=== PATIENT | male | born 1970 | race Caucasian/White ===

== ENCOUNTER 2017-04-01 22:42 | Emergency (ER) | payer OTHER ==
[2017-04-01 23:20] LABS: Glucose,Whole Blood 112 mg/dL (75-99)
[2017-04-01 23:21] LABS: Basophils % (A) 1 %; CHCM 36.1; Eosinophils # (A) 0.1 k/uL (0-0.7); Eosinophils % (A) 2 %; HCT 45.7 % (39.0-53.0); HGB 15.6 gm/dL (13.0-17.5); Luc # (Auto) 0.23; Luc % (Auto) 3; Lymphocytes # (A) 2.4 k/uL (1.0-4.8); Lymphocytes % (A) 31 %; MCH 32.4 pg (25.0-35.0); MCHC 34.1 g/dL (31.0-37.0); MCV 94.8 fL (80.0-100.0); Mean Platelet Volume 7.6; Monocytes # (A) 0.4 k/uL (0-1.0); Monocytes % (A) 6 %; Neutrophils # (A) 4.4 k/uL (1.3-7.7); Neutrophils % (A) 58 %; RBC 4.82 m/uL (4.30-5.90); RDW 14.1 % (11.5-15.5); WBC 7.6 k/uL (3.8-10.6); WBC (Perox) 7.16
[2017-04-01 23:34] LABS: ALT 108 U/L (21-72); AST 54 U/L (17-59); Alkaline Phosphatase 87 U/L (38-126); Anion Gap 18 mmol/L; Blood Urea Nitrogen 10 mg/dL (9-20); Calcium 9.8 mg/dL (8.4-10.2); Carbon Dioxide 24 mmol/L (22-30); Chloride 106 mmol/L (98-107); Glucose 118 mg/dL (74-99); Non-African American GFR(MDRD) >60 (>60 ml/min/1.73 sqM); Potassium 4.6 mmol/L (3.5-5.1); Sodium 148 mmol/L (137-145); Total Bilirubin 0.4 mg/dL (0.2-1.3); Total Protein 8.4 g/dL (6.3-8.2)
--- NOTE | 2017-04-01 23:39 | ED ---
General Adult HPI - General Chief complaint: Fall Stated complaint: low blood sugar resulting in head wound Time Seen by Provider: 04/01/17 22:52 Source: patient, family, RN notes reviewed Mode of arrival: ambulatory Limitations: no limitations - History of Present Illness Initial comments: 46-year-old male presents to the emergency department with chief complaint of fall. Patient states she was at home. He felt kind of shaky like his sugar was dropping and he fell and hit his head on the glass table. Patient states that he then woke up on the ground and he states that he did not check his sugar upper extremity ate something is feeling better. Patient states he did have some beer tonight as well. Patient states that they noticed some cuts on his head so they thought that he should be seen. Patient states that he has had no nausea or vomiting. Patient denies any neck pain. Patient states otherwise he feels great at this time. He has no complaints. Patient denies any recent fever, chills, shortness of breath, chest pain, back pain, abdominal pain, nausea vomiting, numbness or tingling, dysuria or hematuria, constipation or diarrhea, headaches or visual changes, or any other current symptoms. - Related Data Home Medications Medication Instructions Recorded Confirmed Cholecalciferol [Vitamin D3] 1,000 unit PO DAILY 04/01/17 04/01/17 Lisinopril [Prinivil] 15 mg PO DAILY 04/01/17 04/01/17 metFORMIN HCL [Glucophage Xr] 500 mg PO DAILY 04/01/17 04/01/17 Allergies Allergy/AdvReac Type Severity Reaction Status Date / Time No Known Allergies Allergy Verified 04/01/17 23:20 Review of Systems ROS Statement: Those systems with pertinent positive or pertinent negative responses have been documented in the HPI. ROS Other: All systems not noted in ROS Statement are negative. Past Medical History Past Medical History: Diabetes Mellitus, Hypertension History of Any Multi-Drug Resistant Organisms: None Reported Past Surgical History: No Surgical Hx Reported Past Psychological History: No Psychological Hx Reported Smoking Status: Never smoker Past Alcohol Use History: None Reported Past Drug Use History: None Reported General Exam Limitations: no limitations General appearance: alert, in no apparent distress Head exam: Present: other (Patient has multiple lacerations to the back of the head. One is 5 cm and gaping with associated hematoma. There is 3 that are abrasions.) Eye exam: Present: normal appearance, PERRL, EOMI. Absent: scleral icterus, conjunctival injection, periorbital swelling ENT exam: Present: normal exam, mucous membranes moist Neck exam: Present: normal inspection. Absent: tenderness, meningismus, lymphadenopathy Respiratory exam: Present: normal lung sounds bilaterally. Absent: respiratory distress, wheezes, rales, rhonchi, stridor Cardiovascular Exam: Present: regular rate, normal rhythm, normal heart sounds. Absent: systolic murmur, diastolic murmur, rubs, gallop, clicks Neurological exam: Present: alert, oriented X3, CN II-XII intact, normal gait, reflexes normal. Absent: motor sensory deficit Psychiatric exam: Present: normal affect, normal mood Skin exam: Present: warm, dry, intact, normal color. Absent: rash Course Vital Signs 04/01/17 04/01/17 22:44 23:17 Temperature 98.1 F Pulse Rate 110 H 101 H Respiratory 20 17 Rate Blood Pressure 171/112 139/73 O2 Sat by Pulse 97 98 Oximetry Procedures - Procedures Initial comment: The skin was anesthetized with 1% lidocaine without epinephrine. The laceration was then cleansed with Betadine and irrigated with normal saline. The wound was inspected, and there was no evidence of injury to deep structures. No foreign body was noted in the wound. A total of 4 skin fabi were placed with good approximation. to a 5 cm laceration of scalp Medical Decision Making - Medical Decision Making 46-year-old male presents with head injury after suspected that his glucose dropped. There is no chest pain no shortness of breath. He didn't hit his head there is small hematomas and lacerations. Patient's CAT scan is reviewed and negative. Patient underwent staple repair of the head. We did discuss what to watch for with head injuries. Patient's glucose has remained stable here at this time. The patient will be discharged home. We did discuss close monitoring we discussed follow-up and staple care. Patient family are in agreement plan all questions have been good. They will be discharged home. - Lab Data Result diagrams: 04/01/17 23:09 04/01/17 23:09 Lab Results 04/01/17 04/01/17 04/01/17 Range/Units 23:09 23:09 23:15 WBC 7.6 (3.8-10.6) k/uL RBC 4.82 (4.30-5.90) m/uL Hgb 15.6 (13.0-17.5) gm/dL Hct 45.7 (39.0-53.0) % MCV 94.8 (80.0-100.0) fL MCH 32.4 (25.0-35.0) pg MCHC 34.1 (31.0-37.0) g/dL RDW 14.1 (11.5-15.5) % Plt Count 339 (150-450) k/uL Neutrophils % 58 % Lymphocytes % 31 % Monocytes % 6 % Eosinophils % 2 % Basophils % 1 % Neutrophils # 4.4 (1.3-7.7) k/uL Lymphocytes # 2.4 (1.0-4.8) k/uL Monocytes # 0.4 (0-1.0) k/uL Eosinophils # 0.1 (0-0.7) k/uL Basophils # 0.0 (0-0.2) k/uL Sodium 148 H (137-145) mmol/L Potassium 4.6 (3.5-5.1) mmol/L Chloride 106 (98-107) mmol/L Carbon Dioxide 24 (22-30) mmol/L Anion Gap 18 mmol/L BUN 10 (9-20) mg/dL Creatinine 1.00 (0.66-1.25) mg/dL Est GFR (MDRD) Af Amer >60 (>60 ml/min/1.73 sqM) Est GFR (MDRD) Non-Af >60 (>60 ml/min/1.73 sqM) Glucose 118 H (74-99) mg/dL POC Glucose (mg/dL) 112 H (75-99) mg/dL POC Glu Learning Services Coordinator ID Mary Miranda Calcium 9.8 (8.4-10.2) mg/dL Total Bilirubin 0.4 (0.2-1.3) mg/dL AST 54 (17-59) U/L ALT 108 H (21-72) U/L Alkaline Phosphatase 87 (38-126) U/L Total Protein 8.4 H (6.3-8.2) g/dL Albumin 5.0 (3.5-5.0) g/dL Disposition Clinical Impression: Fall, Hypoglycemia, Laceration of head, Scalp hematoma Disposition: HOME SELF-CARE Condition: Stable Instructions: Hypoglycemia in a Person with Diabetes (ED), Head Injury (ED), Staple Care (ED) Additional Instructions: Please use medication as discussed. Please follow up with family doctor if symptoms have not improved over the next two days. Please return to the emergency room if your symptoms increase or worsen or for any other concerns. Referrals: Ruperto Calzada MD [Primary Care Provider] - 1-2 days Time of Disposition: 00:40
--- NOTE | 2017-04-02 00:33 | CT ---
EXAM: CT Head Without Intravenous Contrast CLINICAL HISTORY: Reason: Pain TECHNIQUE: Axial computed tomography images of the head/brain without intravenous contrast. CTDI is 57.40 mGy and DLP is 1098.80 mGy-cm. This CT exam was performed using one or more of the following dose reduction techniques: automated exposure control, adjustment of the mA and/or kV according to patient size, and/or use of iterative reconstruction technique. COMPARISON: No relevant prior studies available. FINDINGS: Brain: Unremarkable. No hemorrhage. No significant white matter disease. No edema. Ventricles: Unremarkable. No ventriculomegaly. Bones/joints: Unremarkable. No acute fracture. Soft tissues: Unremarkable. Sinuses: Unremarkable as visualized. No acute sinusitis. Mastoid air cells: Unremarkable as visualized. No mastoid effusion. Other findings: Right parietal subgaleal hematoma. IMPRESSION: No acute intracranial process. Right parietal subgaleal hematoma. EXAM: CT Cervical Spine Without Intravenous Contrast CLINICAL HISTORY: Reason: Pain TECHNIQUE: Axial computed tomography images of the cervical spine without intravenous contrast. CTDI is 26.40 mGy and DLP is 616.50 mGy-cm. This CT exam was performed using one or more of the following dose reduction techniques: automated exposure control, adjustment of the mA and/or kV according to patient size, and/or use of iterative reconstruction technique. COMPARISON: No relevant prior studies available. FINDINGS: Vertebrae: Unremarkable. No acute fracture. Discs/spinal canal/neural foramina: No acute findings. No spinal canal stenosis. Soft tissues: Unremarkable. Lung apices: Unremarkable as visualized. IMPRESSION: Normal cervical spine CT.
[2017-04-02 00:55] VITALS: BP 138/70; PULSE 100; RESP 16; TEMP 98
== END 2017-04-02 00:56 | disposition home or self-care (01) ==
LOC: EC 22:42
DX: S01.01XA Laceration without foreign body of scalp, initial encounter (principal); E11.649 Type 2 diabetes mellitus with hypoglycemia without coma; M54.2 Cervicalgia; I10 Essential (primary) hypertension; Z79.84 Long term (current) use of oral hypoglycemic drugs; Z79.899 Other long term (current) drug therapy; W01.190A Fall on same level from slipping, tripping and stumbling with subsequent striking against furniture, initial encounter; Y92.009 Unspecified place in unspecified non-institutional (private) residence as the place of occurrence of the external cause
CPT/HCPCS: 12002; 36415; 70450; 72125; 80053; 85025; 99283

== ENCOUNTER 2021-07-29 17:57 | Emergency (ER) | payer OTHER ==
[2021-07-29 18:12] VITALS: RESP 18; TEMP 97.6
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
[2021-07-30 08:04] VITALS: BP 157/84; PULSE 116
== END 2021-07-30 03:15 | disposition home or self-care (01) ==
LOC: EC 17:57
DX: S09.90XA Unspecified injury of head, initial encounter (principal); F10.129 Alcohol abuse with intoxication, unspecified; E11.9 Type 2 diabetes mellitus without complications; I10 Essential (primary) hypertension; Z79.84 Long term (current) use of oral hypoglycemic drugs; W01.10XA Fall on same level from slipping, tripping and stumbling with subsequent striking against unspecified object, initial encounter; Y90.9 Presence of alcohol in blood, level not specified
CPT/HCPCS: 70450; 72125; 99284

== ENCOUNTER → 2022-08-03 | Outpatient (CLI) | payer OTHER ==
[2022-08-03 08:41] LABS: INR 0.9 (<1.2); Prothrombin Time 9.6 sec (9.0-12.0)
[2022-08-03 11:27] LABS: HCT 39.3 % (39.6-50.0); HGB 14.3 g/dL (13.0-17.0); MCH 32.8 pg (27.0-32.0); MCHC 36.4 g/dL (32.0-37.0); MCV 90.1 fL (80.0-97.0); Mean Platelet Volume 10.5 fL (9.5-12.2); NRBC Per 100 WBC 0 /100 WBCS (0.0-0.0); Platelet Count 300 X 10*3/uL (140-440); RBC 4.36 X 10*6/uL (4.40-5.60); RDW 12.9 % (11.5-14.5); WBC 5.35 X 10*3/uL (4.50-10.00)
[2022-08-03 11:34] LABS: African American GFR (CKD) 102.7 (60.0-200.0); Albumin 4.5 g/dL (3.8-4.9); Albumin/Globulin Ratio 1.52 (1.60-3.17); Anion Gap 11.6 mmol/L (10.00-18.00); BUN/Creat Ratio 15.39 Ratio (12.00-20.00); Blood Urea Nitrogen 15.3 mg/dL (9.0-27.0); Calcium 9.5 mg/dL (8.7-10.3); Carbon Dioxide 25.4 mmol/L (20.0-27.5); Globulin 2.9 g/dL (1.6-3.3); Non-African American GFR(CKD) 88.6 (60.0-200.0); Potassium 4.2 mmol/L (3.5-5.5); Total Bilirubin 0.4 mg/dL (0.30-1.20); Total Protein 7.4 g/dL (6.2-8.2)
[2022-08-03 11:38] LABS: Appearance,Urine Clear (Clear); Bilirubin,Urine Negative (Negative); Blood,Urine Negative (Negative); Color,Urine Yellow (Yellow); Ketones,Urine Negative (Negative); Nitrite,Urine Negative (Negative); Specific Gravity,Urine 1.022 (1.001-1.030); Urobilinogen,Urine 0.2 (0.2,1.0)
== END | disposition home or self-care (01) ==
LOC: LABPAT 07:31
PROVIDERS: ATTEND Orthopaedic Surgery
DX: Z01.812 Encounter for preprocedural laboratory examination (principal); M16.11 Unilateral primary osteoarthritis, right hip; M87.08 Idiopathic aseptic necrosis of bone, other site
CPT/HCPCS: 80053; 81003; 85027; 85610; 85730; 87070

== ENCOUNTER → 2022-08-08 | Outpatient (CLI) | payer OTHER | END | disposition home or self-care (01) | LOC: LABWHC1 10:14 | PROVIDERS: ATTEND Orthopaedic Surgery | DX: Z53.9 Procedure and treatment not carried out, unspecified reason (principal) | CPT/HCPCS: 36415; 83036 ==

== ENCOUNTER 2022-08-11 05:37 | Day surgery (SDC) | payer BC, OTHER ==
[~2022-08-11 05:37] MED LIST: MIDAZOLAM 2 MG/2 ML VIAL IV PRN; ROPIVACAINE/EPI/CLONIDINE/KET 50 ML SYRINGE MISCELLANE PRN; TRANEXAMIC ACID IN NACL,ISO-OS 1,000 MG in SALINE 1 100ML.BAG IVPB PRN; VANCOMYCIN 1,750 MG in SODIUM CHLORIDE 0.9% 500 ML 500 ML IVPB PRN
[2022-08-11] MEDS ORDERED: ONDANSETRON 4 MG/2 ML VIAL IVP PRN ×2 (06:00→11:03)
[2022-08-11] MEDS ORDERED: oxyCODONE ER 10 MG TAB.ER.12H PO PRN (06:00)
[2022-08-11] MEDS ORDERED: KETOROLAC 15 MG/ML 1 ML VIAL IVP PRN (06:00)
[2022-08-11] MEDS ORDERED: DOCUSATE 100 MG CAP PO PRN (06:00)
[2022-08-11] MEDS ORDERED: ACETAMINOPHEN TAB 500 MG TAB PO PRN (06:00)
[2022-08-11] MEDS ORDERED: FAMOTIDINE 20 MG/2 ML VIAL IVP PRN (06:00)
[2022-08-11] MEDS ORDERED: DEXAMETHASONE SOD PHOSPHATE 10 MG/ML 1 ML VIAL IV PRN (06:00)
[2022-08-11] MEDS ORDERED: LACTATED RINGERS 1,000 ML IV ONE ×3 (06:20→10:42)
[2022-08-11 06:42] LABS: Glucose,Whole Blood 168 mg/dL (70-110)
[2022-08-11] MEDS ORDERED: VANCOMYCIN 1,000 MG VIAL IVPB ONE (07:17)
[2022-08-11] MEDS ORDERED: MIDAZOLAM 2 MG/2 ML VIAL IVP ONE (07:29)
[2022-08-11] MEDS ORDERED: KETAMINE 10 MG/ML 20 ML VIAL ONE (07:35)
[2022-08-11] MEDS ORDERED: HYDROmorphone (PF) 1 MG/ML ONE (07:35)
[2022-08-11] MEDS ORDERED: PROPOFOL 10 MG/ML 20 ML VIAL IV ONE (07:35)
[2022-08-11] MEDS ORDERED: NEOSTIGMINE 1 MG/ML 10 ML VIAL ONE (07:35)
[2022-08-11] MEDS ORDERED: ROCURONIUM 10 MG/ML (5 ML VIAL) IV ONE (07:35)
[2022-08-11] MEDS ORDERED: PHENYLEPHRINE-0.9% NACL SYG 1,000 MCG/10 ML SYRINGE ONE (07:35)
[2022-08-11] MEDS ORDERED: TRANEXAMIC ACID IN NACL,ISO-OS 1,000 MG/100 ML BAG ONE (07:35)
[2022-08-11] MEDS ORDERED: SODIUM CHLORIDE 0.9% (PF) 10 ML VIAL ONE (07:35)
[2022-08-11] MEDS ORDERED: GLYCOPYRROLATE 0.2 MG/ML 2 ML VIAL ONE (07:35)
[2022-08-11] MEDS ORDERED: fentaNYL (PF) 50 MCG/ML 2 ML AMP ONE (07:35)
[2022-08-11] MEDS ORDERED: MIDAZOLAM 2 MG/2 ML VIAL ONE (07:35)
[2022-08-11] MEDS ORDERED: ROPIVACAINE 5 MG/ML 30 ML VIAL ONE (07:35)
[2022-08-11] MEDS ORDERED: DEXAMETHASONE SOD PHOSPHATE 4 MG/ML 1 ML VIAL ONE (07:35)
[2022-08-11] MEDS ORDERED: LIDOCAINE 2% INJ 20 MG/ML (2 ML VIAL) ONE (07:35)
[2022-08-11] MEDS ORDERED: SUCCINYLCHOLINE CHLORIDE 200 MG/10 ML VIAL IV ONE (07:35)
--- NOTE | 2022-08-11 09:07 | P.ANPRN ---
Procedure Note - Anesthesia - Nerve Block Performed Right Aung Time Out Performed: Yes (:) Date of Procedure: 08/11/22 Procedure Start Time: Procedure Stop Time: Location of Patient: PreOp Indication: Acute Post-Operative Pain, Requested by Surgeon (Dr Hernandez) Sedation Type: Sedate with meaningful contact maintained Preparation: Sterile Prep Position: Supine Catheter: None Needle Types: Pajunk Needle Gauge: 21 Ultrasound used to visualize needle placement: Yes Ultrasound used to observe medication spread: Yes Injectate: 0.5% Ropivacaine (see comment for volume) (20cc +5cc PF Normal saline. Decadron 4mg) Blood Aspirated: No Pain Paresthesia on Injection Noted: No Resistance on Injection: Normal Image Stored and Saved: Yes Events: Uneventful and Well Tolerated
[2022-08-11] MEDS ORDERED: ceFAZolin 3,000 MG in SODIUM CHLORIDE 0.9% IRRIGATIO 3,000 ML IRRIGATION ONE (10:15)
[2022-08-11] MEDS ORDERED: NALOXONE 0.4 MG/ML 1 ML VIAL IV PRN (11:03)
[2022-08-11] MEDS ORDERED: HYDROmorphone 0.5 MG/0.5 ML SYRINGE IVP PRN ×2 (11:03)
[2022-08-11] MEDS ORDERED: hydrOXYzine pamoate 25 MG CAP PO PRN (11:03)
--- NOTE | 2022-08-11 11:12 | P.OP ---
Date of Procedure: 08/11/22 Preoperative Diagnosis: Right hip avascular necrosis, pre-collapse Postoperative Diagnosis: Same Procedure(s) Performed: Right direct anterior total hip arthroplasty Implants: 1. Briana Trident II Acetabular Cup, Size #56 2. Briana Insignia Size #6 Femoral Stem, Standard Offset 3. Biolox delta femoral head, 36 mm, -0 neck Anesthesia: GETA, regional Surgeon: Cruz Hernandez Sign Maintenance #1: Олег Garcia Estimated Blood Loss (ml): 300 IV fluids (ml): 1,200 Pathology: other (Femoral head sent to pathology due to avascular necrosis) Condition: stable Disposition: PACU Indications for Procedure: The patient is a very pleasant 51-year-old male who presented to my office with incapacitating right hip pain. On exam his hip was extremely irritable and he had exquisite pain with passive range of motion. His x-rays were relatively normal so an MRI was obtained. On review of the MRI he had a large area of avascular necrosis. We discussed different treatment options including nonsurgical treatment, joint sparing treatment for avascular necrosis, and total joint replacement. Due to the extent of his avascular necrosis, pain, and age we both agreed that a total hip replacement would be the most predictable for his pain and diagnosis of avascular necrosis. We discussed the potential risks that are elevated and total hip replacement for avascular necrosis including an elevated risk of dislocation. The patient also understands the potential for to need pain if his pain is referred from outside of his hip. He also understands that he may have issues with his left hip as his MRI also showed avascular necrosis in the left hip. I had a long discussion with the patient in the office on the potential risks and complications of an elective total hip replacement through a direct anterior approach. Risks discussed include, but are certainly not limited to, risks from anesthesia, superficial infection requiring local wound care or antibiotics, deep celso-prosthetic joint infection and the treatment required to eradicate infection, intraoperative fracture, postoperative periprosthetic fracture, damage to local blood vessels or nerves particularly the lateral femoral cutaneous nerve, delayed wound healing requiring local wound care or possibly surgical debridement, hip dislocation, leg length discrepancy, soft tissue irritation around the total hip implant such as iliopsoas tendinitis or trochanteric bursitis, wear and osteolysis from the implants, squeaking or audible noises, groin pain, thigh pain, heterotopic ossification, stiffness, aseptic loosening of the implants, dissatisfaction with surgical outcome, need for revision surgery, DVT, PE, swelling of the operative extremity, acute coronary event, stroke, failure to thrive, and possibly loss of life or limb. The patient understands that while these are the most common complications after an elective hip replacement there are certainly other less common complications possible. They were given ample time to ask questions regarding the potential complications of a hip replacement. Following our discussion the patient provided their verbal and written consent to go forward with an elective total hip replacement. Operative Findings: On inspection of the hip capsule was thickened and hypertrophic. The synovium was inflamed and there was a large tense clear effusion in the right hip. The femoral head was intact without any areas of collapse but there was softening in the superior aspect of the articulating surface of the femoral head. Description of Procedure: The patient was identified in the preoperative holding area and the correct hip was marked with my initials. I reviewed the procedure and consent with the patient. All of their questions were answered. The patient was then brought back into the operating room by anesthesia. While on the [facility] anesthesia was administered by the anesthesia team. Preoperative antibiotics and tranexamic acid were also given. After the patient was under anesthesia I examined their ankles to determine their preoperative leg length discrepancy. The skin over the anterior aspect of the hip was shaved to remove hair over the site of planned incision. Both feet and ankles were padded with webril and boots for the [place] were applied. The patient was then carefully transferred onto the [place] table. A perineal post was immediately placed. The arms were placed on arm holders and were well-padded. Both boots were secured to the spars on the [place] table. The patient was positioned so that the pelvis was centered over the post. Nonsterile drapes were applied. A timeout was performed identifying the correct patient, operative extremity, and procedure. At this point fluoroscopy was brought in to take preoperative images of the pelvis and operative hip. Using the standing AP pelvis from the office as a template, a comparable image was obtained with fluoroscopy. A metallic bar was used to create a bi-ischial line for use as a reference to leg length adjustments during the procedure. Global offset was also measured on both the operative and nonoperative leg. Fluoroscopy was then brought out and a pre-scrub using a chlorhexidine scrub brush was performed. The operative limb was then prepped and draped in the standard sterile fashion. An anterior longitudinal incision was made lateral and distal to the ASIS. The skin and subcutaneous tissues were incised sharply. The underlying tensor fascia was identified and incised in its midportion. The fascia was dissected free from the underlying muscle and the muscle belly was retracted. A blunt tipped cobra retractor was placed over the superior neck under the muscle fibers of the gluteus minimus. The deep enveloping fascia of the tensor was incised. The anterior leash of vessels were then identified and cauterized. The fascia between the rectus and the capsule was then incised and the pre-capsular fat was excised. A second Cobra was placed inferior to the neck. The interval between the rectus and iliocapsularis and the hip capsule was developed and a retractor was placed carefully over the anterior rim of the acetabulum. A T-shaped anterior capsulotomy was performed. There was a tense effusion and immediately upon performing the capsulotomy there was a large eisenberg of clear synovial fluid. On inspection of the capsule it appeared hypertrophic and edematous. The superior capsular leaflet was left in place in the inferior capsular flap was excised. The Cobra retractors were placed intracapsularly. We then made a femoral neck osteotomy according to preoperative and intraoperative templating and confirmed the level of the osteotomy using fluoroscopic imaging. The femoral head was removed, passed off to the back table, and sized. The superior capsular flap was excised. Retractors were placed circumferentially exposing the acetabulum. We then circumferentially debrided the acetabulum free of labrum and osteophytes. The pulvinar was removed to fully visualize the cotyloid fossa. We then sequentially reamed to achieve peripheral fit and excellent bleeding subchondral bone. The socket was thoroughly irrigated. The acetabular component was impacted into the appropriate position using fluoroscopy to guide version, inclination, and depth of insertion taking care to have a comparable image of the AP pelvis to the standing image taken in the office. An excellent press-fit was achieved and final position was confirmed using fluoroscopy. The press fit was augmented with bony cancellus dome screws. The liner was then impacted into the socket. Attention was then turned to the femur. The remnant dorsal lateral capsule was excised. The short external rotators were visible and protected. A bone hook was used to confirm appropriate translation of the trochanter away from the acetabulum. The leg was then extended and adducted and the bone hook was used to elevate the femur for broaching. A box osteotome and blunt tipped canal sound was then utilized to gain access to the femoral canal. We then sequentially broached the femur in appropriate anteversion until excellent tors ional stability was achieved. The neck cut was brought flush to the trial broach with a calcar planar. A trial neck and head were then placed onto the broach and the hip was atraumatically reduced under direct visualization. External rotation to 90 was performed to assess stability. Fluoroscopy was brought in. An AP and lateral fluoroscopic image of the proximal femur was obtained to assess position and fill of the trial broach. An AP of the pelvis was then obtained and matched to the preoperative image taken. A bi-ischial bar was then placed and measurements were taken to assess changes in length and offset. The hip was then carefully dislocated, the proximal femur was exposed, and the trial implants were removed. The wound and proximal femur was thoroughly irrigated using sterile saline and pulsatile lavage. The final femoral implant was dispensed and gently tapped into place generating an excellent press-fit. The trunnion was cleansed and the final head was tapped into place to engage the [place] taper. The acetabulum was irrigated and visualized to be free of debris. The hip was carefully reduced. Stability was checked clinically with external rotation to 90 and there was no evidence of instability. Final fluoroscopic images were taken. The wound was then thoroughly irrigated and soaked with a dilute Betadine rinse for 3 minutes. 3 L of sterile saline was irrigated through the wound using pulsatile lavage. Local anesthetic cocktail was injected into the soft tissues around the surgical field. A deep drain was placed. The wound was then closed in layers. A sterile dressing was placed over the surgical incision and drain site. The drapes were taken down and the patient was carefully transferred off of the [place] table. Following removal of the boots the leg lengths felt acceptable. The patient was then taken to recovery room having tolerated the procedure well. Олег Garcia PA-C was required as a skilled psychological assistant for patient positioning, surgical exposure, retraction, placement of implants, and closure of the surgical wound. PLAN: The patient can weight-bear as tolerated on the operative extremity. 2 doses of postoperative antibiotics. DVT prophylaxis with aspirin 81 mg twice a day based on preoperative risk stratification. Physical therapy for gait training. Discontinue drain postoperative day #1 if output is less than 100 mL per shift.
[2022-08-11 11:18] LABS: Glucose,Whole Blood 279 mg/dL (70-110)
[2022-08-11] MEDS: HYDROmorphone 0.5 MG/0.5 ML SYRINGE IVP PRN ×2 (11:24→11:44)
--- NOTE | 2022-08-11 11:30 | FL ---
EXAMINATION TYPE: FL guidance operating room, XR Hip Limited RT DATE OF EXAM: 08/11/2022 COMPARISON: NONE HISTORY: 51-year-old male right anterior hip replacement FINDINGS: Intraoperative fluoroscopy during performance of right total hip arthroplasty. FLUOROSCOPY Fluoroscopy time of 46 seconds was used during anterior right hip replacement. 8 image/s document/s the procedure. IMPRESSION: Intraoperative fluoroscopy as above.
[2022-08-11] MEDS ORDERED: diphenhydrAMINE 50 MG/ML 1 ML VIAL IVP ONE (11:44)
[2022-08-11] MEDS ORDERED: INSULIN ASPART (NovoLOG) 100 UNIT/ML VIAL SQ ONE (11:52)
[2022-08-11] MEDS: LACTATED RINGERS 1,000 ML IV SCH ×2 (13:09→13:14)
[2022-08-11] MEDS: oxyCODONE-APAP 5-325MG 1 EACH TAB PO PRN (15:15)
[2022-08-11] MEDS: HYDROmorphone 1 MG/ML 1 ML SYRINGE IVP PRN ×2 (19:57→23:41)
[2022-08-11] MEDS: ASPIRIN 81 MG PO SCH (21:15)
[2022-08-12] MEDS: LACTATED RINGERS 1,000 ML IV SCH ×6 (01:13→20:31)
[2022-08-12] MEDS: oxyCODONE-APAP 5-325MG 1 EACH TAB PO PRN (03:29)
[2022-08-12] MEDS: HYDROmorphone 1 MG/ML 1 ML SYRINGE IVP PRN (07:50)
[2022-08-12] MEDS: ASPIRIN 81 MG PO SCH ×2 (07:53→20:30)
[2022-08-12] MEDS: oxyCODONE-APAP 10-325MG 1 EACH TAB PO PRN ×3 (09:44→21:38)
--- NOTE | 2022-08-12 10:00 | P.DS ---
Providers Expected date of discharge: 08/12/22 Attending physician: Cruz Hernandez Consults: 08/11/22 13:39 Consult Physician Routine Consulting Provider: Micaela Peres Consult Reason/Comments: medical management Do you want consulting provider notified?: Yes Primary care physician: Ruperto Ding Kut - Discharge Diagnosis(es) (1) S/P total hip arthroplasty Current Visit: Yes Status: Acute (2) Osteoarthritis of right hip Current Visit: Yes Status: Acute Hospital Course: This is a 51-year-old male with known history of avascular necrosis of the right hip. The patient presented for evaluation as an outpatient. After discussion and consideration patient elects to proceed with total hip arthroplasty. The patient is seen preoperatively by Dr. Hernandez and medically cleared for surgery by their primary care physician. Patient is admitted to [facility] on 08/11/2022 for total hip arthroplasty. The procedure is performed without complication or sequelae. The patient is doing well postoperatively. Labs and vital signs are stable on day o f discharge. On day of discharge patient's hip incision is healing well. There is minimal erythema. There is no drainage noted at this time. There is minimal soft tissue swelling to the hip and thigh. Patient has full foot and ankle motion without difficulty or pain. Calf is soft and nontender to palpation. Neurovascular status to the right lower extremity is intact. Patient is discharged home in good condition. Please see med rec for accurate list of home medications. Plan - Discharge Summary Discharge Rx Participant: No New Discharge Prescriptions: New Docusate [Colace] 100 mg PO BID #60 capsule Omeprazole 40 mg PO DAILY 30 Days #30 cap Aspirin 81 mg PO BID 30 Days #60 tab Diclofenac Sodium [Voltaren] 75 mg PO BID 30 Days #60 tab Doxycycline Monohydrate 100 mg PO BID 14 Days #28 capsule oxyCODONE-APAP 10-325MG [Percocet 10-325 mg] 1 tab PO Q6HR PRN #28 tab PRN Reason: Pain No Action Cholecalciferol [Vitamin D3] 1,000 unit PO DAILY Metoprolol Succinate [Metoprolol Succinate ER] 50 mg PO DAILY Niacin 500 mg PO DAILY [place] 1 tab PO DAILY Bitter Melon 1 tab PO DAILY Triamterene-Hctz 37.5-25Mg [Dyazide 37.5-25 Capsule] 1 cap PO DAILY Fish Oil/Dha/Epa [Fish Oil 1,200 mg Fish Oil] 1 each PO DAILY Cider Vinegar [Apple Cider Vinegar] 300 mg PO DAILY Discharge Medication List Cholecalciferol [Vitamin D3] 1,000 unit PO DAILY 04/01/17 [History] Bitter [place]on 1 tab PO DAILY 08/03/22 [History] Cider Vinegar [Apple Cider Vinegar] 300 mg PO DAILY 08/03/22 [History] Fish Oil/Dha/Epa [Fish Oil 1,200 mg Fish Oil] 1 each PO DAILY 08/03/22 [History] Metoprolol Succinate [Metoprolol Succinate ER] 50 mg PO DAILY 08/03/22 [History] [place] 1 tab PO DAILY 08/03/22 [History] Niacin 500 mg PO DAILY 08/03/22 [History] Triamterene-Hctz 37.5-25Mg [Dyazide 37.5-25 Capsule] 1 cap PO DAILY 08/03/22 [History] Aspirin 81 mg PO BID 30 Days #60 tab 08/11/22 [Rx] Diclofenac Sodium [Voltaren] 75 mg PO BID 30 Days #60 tab 08/11/22 [Rx] Docusate [Colace] 100 mg PO BID #60 capsule 08/11/22 [Rx] Omeprazole 40 mg PO DAILY 30 Days #30 cap 08/11/22 [Rx] Doxycycline Monohydrate 100 mg PO BID 14 Days #28 capsule 08/12/22 [Rx] oxyCODONE-APAP 10-325MG [Percocet 10-325 mg] 1 tab PO Q6HR PRN #28 tab 08/12/22 [Rx] Follow up Appointment(s)/Referral(s): [facility], [NON-STAFF] - As Needed [facility] [NON-STAFF] - As Needed (walker) Cruz Hernandez MD [Medical Doctor] - 2 Weeks Activity/Diet/Wound Care/Special Instructions: Weight bear to tolerance on operative extremity with a walker. Keep operative dressing in place until follow-up appointment in the office. Call the office if dressing becomes saturated or falls off. May shower over dressing. Take pain medication as prescribed. Take aspirin 81mg BID x 4 weeks for blood clot prevention. Follow-up in the office in two weeks at [facility]. Call the office with any questions or concerns, Discharge Disposition: HOME WITH HOME HEALTH SERVICES
[2022-08-12 13:30] LABS: Basophils # (A) 0.01 X 10*3/uL (0.00-0.10); Basophils % (A) 0.1 %; Eosinophils # (A) 0.01 X 10*3/uL (0.04-0.35); Eosinophils % (A) 0.1 %; HCT 27.4 % (39.6-50.0); HGB 10.2 g/dL (13.0-17.0); Immature Grans, Automated 0.6 %; Lymphocytes # (A) 1.56 X 10*3/uL (0.90-5.00); Lymphocytes % (A) 12.3 %; MCH 33.6 pg (27.0-32.0); MCHC 37.2 g/dL (32.0-37.0); MCV 90.1 fL (80.0-97.0); Monocytes # (A) 1.18 X 10*3/uL (0.20-1.00); Monocytes % (A) 9.3 %; NRBC Per 100 WBC 0 /100 WBCS (0.0-0.0); Neutrophils # (A) 9.84 X 10*3/uL (1.80-7.70); Neutrophils % (A) 77.6 %; Platelet Count 256 X 10*3/uL (140-440); RBC 3.04 X 10*6/uL (4.40-5.60); RDW 13.9 % (11.5-14.5); WBC 12.67 X 10*3/uL (4.50-10.00)
[2022-08-12] MEDS: KETOROLAC 15 MG/ML 1 ML VIAL IVP PRN ×2 (13:49→18:52)
[2022-08-12] MEDS: CYCLOBENZAPRINE 5 MG TAB PO PRN ×2 (13:49→21:38)
--- NOTE | 2022-08-12 15:15 | P.CONS ---
History of Present Illness - Reason for Consult Consult date: 08/12/22 Medical management status post right hip replacement - History of Present Illness This is a 51-year-old male who was admitted under orthopedic services underwent right total hip arthroplasty and is doing relatively well. Working on pain management. Patient follows with Dr. Calzada in the outpatient setting and underwent presurgical clearance with him and has a past medical history of diabetes mellitus, diet controlled along with hypertension. Patient's hemoglobin A1c is 7.8 and reports he is diet controlled and does not take medications for this. Patient pressure is normotensive at this time recommend to hold the pressure medications and monitor and resume his blood pressure becomes elevated. Patient reports to having some spasms in the right lower extremity and will add low-dose Flexeril. Patient encouraged to follow-up with primary care provider to discuss diabetes and possible initiation of oral diabet ic agents. On exam patient is afebrile denies chest pain or shortness of breath. Incentive spirometer at the bedside and encourage the patient continue using at least 10 times every hour while awake. Patient reports he may be discharged later today and has been cleared by orthopedics. CBC reviewed today with a WBC of 12.67 most likely reactive and blood sugars are being monitored. Hemoglobin is stable at 10.2. Vital signs are stable and blood pressure is currently 102/64. Review Of Systems: Constitutional: No fever, no chills, no night sweats. No weight change. No weakness, fatigue or lethargy. No daytime sleepiness. EENT: No headache. No blurred vision or double vision, no loss of vision. No loss of Hearing, no ringing in the ears, no dizziness. No nasal drainage or congestion. No epistaxis. No sore throat. Lungs: No shortness of breath, cough, no sputum production. No wheezing. Cardiovascular: No chest pain, no lower extremity edema. No palpitations. No paroxysmal nocturnal dyspnea. No orthopnea. No lightheadedness or dizziness. No syncopal episodes. Abdominal: No abdominal pain. No nausea, vomiting. No diarrhea. No constipation. No bloody or tarry stools.. No loss of appetite. Genitourinary: No dysuria, increased frequency, urgency. No urinary retention. Musculoskeletal: No myalgias. No muscle weakness, no gait dysfunction, no frequent falls. No back pain. No neck pain. Reports some right hip discomfort and cramping and spasms of the right lower extremity Integumentary: No wounds, no lesions. No rash or pruritus. No unusual bruising. No change in hair or nails. Neurologic: No aphasia. No facial droop. No change in mentation. No head injury. No headache. No paralysis. No paresthesia. Psychiatric: No depression. No anxiety. No mood swings. Endocrine: Reports abnormal blood sugars while being here although reports to being diet controlled outpatient. No weight change. No excessive sweating or thirst. No cold intolerance. PHYSICAL EXAMINATION: GENERAL: The patient is alert and oriented x4, Well developed, well nourished. Obese HEENT: Pupils are round and equally reacting to light. EOMI. no scleral icterus. No conjunctival pallor. Normocephalic, atraumatic. No pharyngeal erythema. No thyromegaly. CARDIOVASCULAR: S1 and S2 muffled PULMONARY: diminished breath sounds bilaterally with no wheezing or rhonchi note d. ABDOMEN: soft. Nontender on exam. obese. non-distended, normoactive bowel sounds. No palpable organomegaly. MUSCULOSKELETAL: No joint swelling or deformity. EXTREMITIES: No cyanosis, clubbing, or pedal edema. Right hip surgical site looks dry and intact with no surrounding redness. Right lower extremity with some mild edema NEUROLOGICAL: Gross neurological examination did not reveal any focal deficits. SKIN: No rashes. Assessment: Status post right total hip arthroplasty postop day 1 History of diabetes mellitus, diet controlled, although hemoglobin A1c is 7.8 Hypertension history Obesity with a BMI of 39.8 Leukocytosis, most likely reactive secondary to assessment #1 GI prophylaxis DVT prophylaxis Full code Plan: Recommend to continue with current medications and management per orthopedic services. Patient has been up and walking and doing relatively well working on pain management. Will defer pain management and DVT prophylaxis to orthopedics. Patient's home medications have been reviewed and resumed recommend to hold blood pressure medication today as patient is normotensive and encourage the patient to follow-up and monitor blood pressures closely and if blood pressure is elevated at home to resume his normal dosing. Will resume metoprolol. Patient encouraged to discuss with primary care provider's hemoglobin A1c is 7.8 and patient reports he is diet controlled diabetes and not taking any medications for this. Patient with an incentive spirometer at the bedside encourage the patient to continue using at least 10 times every hour while awake. Encouraged increase activity as tolerated with restrictions per orthopedics. Patient has a walker and reports he will possibly be discharged this afternoon if pain is better controlled. Will add low-dose Flexeril as patient is having some spasms of that right thigh and lower extremity. Encourage the patient follow-up with Dr. Calzada his primary care provider discuss his hemoglobin A1c and possible diabetic agents. We will continue to follow with orthopedics during hospitalization. Thank you kindly for this consultation. The impression and plan of care has been dictated by Latonya Plascencia, nurse practitioner as directed. Dr. Khadar RIVERS I have performed a history and examination and MDM of this patient, discussed the same with the dictator, and agree with the dictator's assessment and plan as written ,documented as a scribe. Based on total visit time, I have performed more than 50% of the visit. Any additional findings or plans will be noted. Past Medical History Past Medical History: Diabetes Mellitus, Hypertension Additional Past Medical History / Comment(s): used to take oral med, now diet controlled diabetes History of Any Multi-Drug Resistant Organisms: None Reported Past Surgical History: No Surgical Hx Reported Additional Past Surgical History / Comment(s): wisdom teeth & top teeth removed Past Anesthesia/Blood Transfusion Reactions: No Reported Reaction Past Psychological History: No Psychological Hx Reported Smoking Status: Never smoker Past Alcohol Use History: None Reported Additional Past Alcohol Use History / Comment(s): quit drinking 2 yrs. ago, denies any problem, quit related to his diabetes Past Drug Use History: None Reported - Past Family History Mother Family Medical History: No Reported History Medications and Allergies Home Medications Medication Instructions Recorded Confirmed Type Cholecalciferol [Vitamin D3 (25 1,000 unit PO DAILY 04/01/17 08/11/22 History Mcg = 1000 Iu)] Bitter Melon 1 tab PO DAILY 08/03/22 08/11/22 History Cider Vinegar [Apple Cider Vinegar] 300 mg PO DAILY 08/03/22 08/11/22 History Fish Oil/Dha/Epa [Fish Oil 1,200 1 each PO DAILY 08/03/22 08/11/22 History mg Fish Oil] Metoprolol Succinate [Metoprolol 50 mg PO DAILY 08/03/22 08/11/22 History Succinate ER] [place] 1 tab PO DAILY 08/03/22 08/11/22 History Niacin 500 mg PO DAILY 08/03/22 08/11/22 History Triamterene-Hctz 37.5-25Mg 1 cap PO DAILY 08/03/22 08/11/22 History [Dyazide 37.5-25 Capsule] Aspirin 81 mg PO BID 30 Days #60 tab 08/11/22 Rx Diclofenac Sodium [Voltaren] 75 mg PO BID 30 Days #60 tab 08/11/22 Rx Docusate [Colace] 100 mg PO BID #60 capsule 08/11/22 Rx Omeprazole 40 mg PO DAILY 30 Days #30 cap 08/11/22 Rx Cyclobenzaprine [Flexeril] 5 mg PO TID PRN #30 tab 08/12/22 Rx Doxycycline Monohydrate 100 mg PO BID 14 Days #28 capsule 08/12/22 Rx oxyCODONE-APAP 10-325MG [Percocet 1 tab PO Q6HR PRN #28 tab 08/12/22 Rx 10-325 mg] Allergies Allergy/AdvReac Type Severity Reaction Status Date / Time No Known Allergies Allergy Verified 08/11/22 06:20 Physical Exam Vitals: Vital Signs Temp Pulse Resp BP Pulse Ox 08/12/22 07:24 98.1 F 85 16 118/69 98 08/12/22 02:00 98.8 F 86 16 110/65 96 08/11/22 19:57 98.3 F 95 16 157/80 95 08/11/22 13:00 98.6 F 87 18 114/71 95 08/11/22 12:30 69 16 105/49 95 08/11/22 12:15 63 16 98/54 95 08/11/22 12:00 65 16 103/54 94 L 08/11/22 11:45 70 16 102/50 93 L 08/11/22 11:29 87 16 109/56 95 08/11/22 11:13 93 16 109/53 94 L 08/11/22 10:58 98 F 95 20 109/57 99 Intake and Output 08/11/22 08/12/22 08/12/22 22:59 06:59 14:59 Output Total 125 150 Balance -125 -150 Output: Drainage 125 150 Right Hip 125 150 Other: Voiding Method Toilet # Voids 0 3 3 Results CBC & Chem 7: 08/12/22 06:13 Labs: Abnormal Lab Results - Last 24 Hours (Table) 08/03/22 08/11/22 08/11/22 Range/Units 15:20 11:14 14:09 POC Glucose (mg/dL) 279 H (70-110) mg/dL Hemoglobin A1c 7.8 H (0.0-6.0) % Blood Bank Comment Sent to [facility] A Reference Lab Result See [facility] REF Reports A
[2022-08-13] MEDS: oxyCODONE-APAP 10-325MG 1 EACH TAB PO PRN ×2 (04:11→10:10)
[2022-08-13] MEDS: CYCLOBENZAPRINE 5 MG TAB PO PRN ×2 (04:11→10:10)
[2022-08-13] MEDS: KETOROLAC 15 MG/ML 1 ML VIAL IVP PRN (07:42)
[2022-08-13] MEDS: ASPIRIN 81 MG PO SCH (07:42)
[2022-08-13] MEDS ORDERED: METOPROLOL SUCCINATE (ER) 50 MG TAB.ER.24H PO SCH (09:00)
[2022-08-13 09:12] VITALS: BP 121/68; PULSE 89; RESP 18; TEMP 98.8
[2022-08-13] MEDS ORDERED: TRIAMTERENE-HCTZ 37.5-25MG 1 EACH CAP PO SCH (09:30)
--- NOTE | 2022-08-13 16:30 | P.PN ---
Subjective Progress Note Date: 08/13/22 - Reason for Consult Consult date: 08/12/22 Medical management status post right hip replacement - History of Present Illness This is a 51-year-old male who was admitted under orthopedic services underwent right total hip arthroplasty and is doing relatively well. Working on pain management. Patient follows with Dr. Calzada in the outpatient setting and underwent presurgical clearance with him and has a past medical history of diabetes mellitus, diet controlled along with hypertension. Patient's hemoglobin A1c is 7.8 and reports he is diet controlled and does not take medications for this. Patient pressure is normotensive at this time recommend to hold the pressure medications and monitor and resume his blood pressure becomes elevated. Patient reports to having some spasms in the right lower extremity and will add low-dose Flexeril. Patient encouraged to follow-up with primary care provider to discuss diabetes and possible initiation of oral diabetic agents. On exam patient is afebrile denies chest pain or shortness of breath. Incentive spirometer at the bedside and encourage the patient continue using at least 10 times every hour while awake. Patient reports he may be discharged later today and has been cleared by orthopedics. CBC reviewed today with a WBC of 12.67 most likely reactive and blood sugars are being monitored. Hemoglobin is stable at 10.2. Vital signs are stable and blood pressure is currently 102/64. 08/13/2022 Patient is seen and evaluated in follow-up today status post right total hip arthroplasty postop day 2. Patient was held overnight for pain management as patient continued to report pain was greater than 8/10 on the pain scale. Patient is currently sitting up at the site of the bed and has been up multiple times doing well has a walker that was delivered to the bedside. Blood sugars have been monitored and again discussed with the patient about following up with primary care provider to discuss possible oral diabetic agents. Patient has been doing diet control although hemoglobin A1c is 7.5. Recommend continue with incentive spirometer at least 10 times every hour while awake and will continue pain management and DVT prophylaxis per orthopedics. Patient is afebrile and reports he is ready to go home today. Review of systems: Constitutional: No reports of fatigue, fever, or chills Cardiovascular: No reports of chest pain or palpitations Respiratory: No reports of shortness of breath or cough GI: No reports of nausea, vomiting, or diarrhea : No reports of dysuria or retention Neurovascular: No reports of weakness or numbness All medications have been reviewed PHYSICAL EXAMINATION: GENERAL: The patient is alert and oriented x4, Well developed, well nourished. Obese HEENT: Pupils are round and equally reacting to light. EOMI. no scleral icterus. No conjunctival pallor. Normocephalic, atraumatic. No pharyngeal erythema. No thyromegaly. CARDIOVASCULAR: S1 and S2 muffled PULMONARY: diminished breath sounds bilaterally with no wheezing or rhonchi noted. ABDOMEN: soft. Nontender on exam. obese. non-distended, normoactive bowel sounds. No palpable organomegaly. MUSCULOSKELETAL: No joint swelling or deformity. EXTREMITIES: No cyanosis, clubbing, or pedal edema. Right hip surgical site looks dry and intact with no surrounding redness. Right lower extremity with improved edema NEUROLOGICAL: Gross neurological examination did not reveal any focal deficits. SKIN: No rashes. Assessment: Status post right total hip arthroplasty postop day 2 History of diabetes mellitus, diet controlled, although hemoglobin A1c is 7.8 Hypertension history Obesity with a BMI of 39.8 Leukocytosis, most likely reactive secondary to assessment #1 GI prophylaxis DVT prophylaxis Full code Plan: Recommend to continue with current medications and management per orthopedic services. Patient has been up and walking and doing relatively well working on pain management. Will defer pain management and DVT prophylaxis to orthopedics. Patient's home medications have been reviewed and resumed including blood pressure medication. Patient with an incentive spirometer at the bedside encourage the patient to continue using at least 10 times every hour while awake. Encouraged increase activity as tolerated with restrictions per orthopedics. Patient has a walker and reports he will be discharged this afternoon. Patient reports his pain is better controlled. Encouraged the patient to to follow-up with Dr. Calzada his primary care provider discuss his hemoglobin A1c and possible diabetic agents. We will continue to follow with orthopedics during hospitalization. Thank you kindly for this consultation. Patient is being discharged in medically stable for discharge today. The impression and plan of care has been dictated by Latonya Plascencia, nurse practitioner as directed. Dr. Khadar RIVERS I have performed a history and examination and MDM of this patient, discussed the same with the dictator, and agree with the dictator's assessment and plan as written ,documented as a scribe. Based on total visit time, I have performed more than 50% of the visit. Any additional findings or plans will be noted. Objective - Vital Signs Vital signs: Vital Signs Temp 98.8 F 08/13/22 08:00 Pulse 89 08/13/22 08:00 Resp 18 08/13/22 08:00 BP 121/68 08/13/22 08:00 Pulse Ox 97 08/13/22 08:00 FiO2 Intake & Output 08/12/22 08/13/22 08/13/22 18:59 06:59 18:59 Intake Total 1000 Output Total 700 Balance -700 1000 Intake: Oral 1000 Output: Urine 700 Other: # Voids 2 4 - Labs CBC & Chem 7: 08/12/22 06:13 Labs: Abnormal Lab Results - Last 24 Hours (Table) 08/12/22 Range/Units 06:13 WBC 12.67 H (4.50-10.00) X 10*3/uL RBC 3.04 L (4.40-5.60) X 10*6/uL Hgb 10.2 L (13.0-17.0) g/dL Hct 27.4 L (39.6-50.0) % MCH 33.6 H (27.0-32.0) pg MCHC 37.2 H (32.0-37.0) g/dL Immature Gran # 0.07 H (0.00-0.04) X 10*3/uL Neutrophils # 9.84 H (1.80-7.70) X 10*3/uL Monocytes # 1.18 H (0.20-1.00) X 10*3/uL Eosinophils # 0.01 L (0.04-0.35) X 10*3/uL
== END 2022-08-13 11:58 | disposition home health service (06) ==
LOC: OR 05:37 → 4SSUR 10:50 → OR 08-13 11:58
PROVIDERS: ATTEND Orthopaedic Surgery
DX: M16.11 Unilateral primary osteoarthritis, right hip (principal); D72.829 Elevated white blood cell count, unspecified; E11.9 Type 2 diabetes mellitus without complications; E66.9 Obesity, unspecified; I10 Essential (primary) hypertension; M87.9 Osteonecrosis, unspecified; Z68.39 Body mass index [BMI] 39.0-39.9, adult; Z79.1 Long term (current) use of non-steroidal anti-inflammatories (NSAID); Z79.82 Long term (current) use of aspirin; Z79.899 Other long term (current) drug therapy; Z96.641 Presence of right artificial hip joint; G89.18 Other acute postprocedural pain
CPT/HCPCS: 97163; 64447; 76942; 86900; 86901; 85025; 86850; 86870 ×2; 86880 ×2; 88300; 83036; 73501; 27130; C1776; J2250; J3370; J1200; J1100; J0690 ×2; J2405; J1170 ×3; J1885 ×3

== ENCOUNTER → 2023-08-20 | Outpatient (CLI) | payer OTHER ==
--- NOTE | 2023-08-24 04:54 | MR ---
EXAMINATION TYPE: MR hip LT wo con DATE OF EXAM: 08/20/2023 COMPARISON: Pelvic x-ray September 08, 2022 HISTORY: Lt hip pain Standard multiplanar, multisequence MRI departmental protocol Multiplanar, multisequence images of the pelvis focusing on the left hip were acquired without contra st. FINDINGS: Mild to moderate axial joint space loss in the left hip without significant spurring. There is however serpiginous diminished T1 signal involving the superior humeral head consistent with avas cular necrosis along the anterior aspect. No bony fragmentation identified currently. There is hetero geneous increased T2 signal at this level extending into the femoral neck. No significant joint effus ion. No obvious groin adenopathy seen. Muscle bulk is maintained. There is susceptibility artifact fr om metallic hardware from total right hip arthroplasty noted. Symmetric small fat-containing bilatera l inguinal hernias are seen. Urinary bladder appears within normal limits. Prostate gland is normal in size. No suspicious bowel d ilatation. No free fluid in the pelvis. 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
== END | disposition home or self-care (01) ==
LOC: RADMRIMAIN 11:55
PROVIDERS: ATTEND Orthopaedic Surgery
DX: M16.12 Unilateral primary osteoarthritis, left hip (principal); M87.052 Idiopathic aseptic necrosis of left femur; Z47.1 Aftercare following joint replacement surgery; L76.34 Postprocedural seroma of skin and subcutaneous tissue following other procedure; M70.61 Trochanteric bursitis, right hip; E11.9 Type 2 diabetes mellitus without complications; Z96.641 Presence of right artificial hip joint

== ENCOUNTER → 2023-09-17 | Outpatient (CLI) | payer OTHER ==
--- NOTE | 2023-09-17 09:01 | MR ---
EXAMINATION TYPE: MR lumbar spine wo con DATE OF EXAM: 09/17/2023 COMPARISON: None HISTORY: Lower back pain, RLE radiculopathy. TECHNIQUE: Multiplanar, multisequence images of the lumbar spine were acquired without IV contrast. L1-L2: Normal disc appearance without desiccation. No herniation, protrusion or disc bulging. No ca nal stenosis is present. Foramina are patent bilaterally. L2-L3: Normal disc appearance without desiccation. No herniation, protrusion or disc bulging. No ca nal stenosis is present. Foramina are patent bilaterally. L3-L4: Normal disc appearance without desiccation. There is mild posterior disc bulge. There is mild central stenosis. The spinal canal is congenitally diminutive in size. Foramina are patent bilatera lly. L4-L5: There is mild disc desiccation and posterior disc bulge. There is moderate central stenosis ar e noted. Again the spinal canal is congenitally diminutive in size. Foramina appear patent bilaterall y. L5-S1: Normal disc appearance without desiccation. There is mild posterior disc bulge. There is mild central stenosis. The spinal canal is congenitally diminutive in size. Foramina are patent bilatera lly. Lumbar segments are intact. No paraspinal masses are identified. Conus medullaris has a normal appe arance. IMPRESSION: 1. The spinal canal is congenitally diminutive in size. There is associated mild disc bulging with no central stenosis as outlined above ascending from L3-4 through L5-S1.
== END | disposition home or self-care (01) ==
LOC: RADMRIMAIN 06:52
PROVIDERS: ATTEND Physical Medicine & Rehabilitation
DX: M51.17 Intervertebral disc disorders with radiculopathy, lumbosacral region (principal); M47.27 Other spondylosis with radiculopathy, lumbosacral region; M48.062 Spinal stenosis, lumbar region with neurogenic claudication
CPT/HCPCS: 72148

== ENCOUNTER → 2023-09-17 | Outpatient (CLI) | payer OTHER ==
--- NOTE | 2023-09-17 10:29 | BD ---
EXAMINATION TYPE: Axial Bone Density DATE OF EXAM: 09/17/2023 CLINICAL HISTORY: 52 years old Male. ICD-10 CODE: M25.559 PAIN IN UNSPECIFIED HIP Height: 69" Weight: 269.3lbs FRAX RISK QUESTIONS: Alcohol (3 or more units per day): No Family History (Parent hip fracture): Unknown Glucocorticoids (More than 3mos): No (Ex: prednisone, prednisolone, methylprednisolone, dexamethasone, and hydrocortisone). History of Fracture in Adulthood: Yes, ankles Secondary Osteoporosis: 1. Type 1 Diabetes: No 2. Hyperthyroidism: No 3. Menopause before 45: N/A 4. Malnutrition: No 5. Chronic liver disease: No Rheumatoid Arthritis: No Current Tobacco Use: No RISK FACTORS HISTORY OF: Hip Fracture (Right/Left): No Spine Fracture: No History of Wrist Fracture: No Surgery to Spine/Hip(right/left)/Wrist (right/left): Right hip replacement When: 2022 MEDICATIONS: Thyroid Medications: No Osteoporosis Medications: No EXAM MEASUREMENTS: Bone mineral densitometry was performed using the [employer] System. Bone mineral density as measured about the Lumbar spine is: ----- L1-L4(G/cm2): 1.600 T Score Values are as follows: ----- L1: 3.3 ----- L2: 2.7 ----- L3: 2.9 ----- L4: 4.7 ----- L1-L4: 3.5 Z Score Values are as follows: ----- L1: 2.5 ----- L2: 1.8 ----- L3: 2.0 ----- L4: 3.8 ----- L1-L4: 2.6 Baseline @MPH Bone mineral density about the L hip (g/cm2): 1.256 T Score values are as follows: -----L Neck: 1.0 -----L Total: 2.0 Z Score values are as follows: -----L Neck: 0.9 -----L Total: 1.0 Baseline @MPH FRAX%s: The graph provided illustrates a 2.5% chance for a major osteoporotic fx and a 0.0% chance fo r the hips probability for fx in 10 years time. IMPRESSION: Normal (Values between +1 and -1 indicate normal bone mass). Consider repeating this study in 5 year s or sooner if there is some new clinical indication. NOTE: T-SCORE=SD OF THE YOUNG ADULT MEAN.
== END | disposition home or self-care (01) ==
LOC: RADBDWWP 07:54
PROVIDERS: ATTEND Family Medicine
DX: M25.559 Pain in unspecified hip (principal)
CPT/HCPCS: 77080

== ENCOUNTER → 2023-10-03 | Outpatient (CLI) | payer OTHER ==
[2023-10-03 09:30] VITALS: BP 137/88; PULSE 89; RESP 15; TEMP 98.6
--- NOTE | 2023-10-03 14:47 | P.PAINPG ---
PQRS Measure Charge Sheet Comment: HISTORY OF PRESENT ILLNESS: A 52 yr old male as a referral from Dr Marinelli presents today w severe and chronic LBP x 1 yr secondary to DDD, spondylosis and facet arthropathy without myelopathy for evaluation. Pt states pain level is provoked at 7 /10 in intensity, constant, localized in the lower lumbar spine, predominantly axial, tingly in character w occasional shooting pain towards the R hip, knee and foot. Pain is provoked by standing from a sitting position. Pain is alleviated by physician guided home stretching from Dr Marinelli daily since Sep 18 2023, heat, medications ([place] 10/325mg, Flexeril), topical, repositioning and rest. He could not continue PT due to R hip avascular necrosis and infection needing debridement twice in 2022. Oswestry axial pain score at 29. PMH: OA, NIDDM II, HTN PSH: R Total Hip Arthroplasty (2021), R Hip Avascular Necrosis & Debridement x2 (2022), [place] Teeth Extraction SH: Never smoker, Hx of ETOH abuse (2020), No illicit drug use FH: Mo- No Reported History All: See list Meds: See list REVIEW OF ORGAN SYSTEMS: CONSTITUTIONAL: No fevers or chills. No recent weight loss. NEUROLOGICAL: + numbness and tingling along the distal extremities. No seizure disorders or headaches. MUSCULOSKELETAL: + pain PSYCHIATRIC: Denies current depression or suicidal thoughts. Physical Examinations : Constitutional : Cooperative , not in acute distress . Neurologic : Cranial nerve II to XII intact. No focal neurological deficits. Psychiatric : alert & oriented x 3. Matching mood & appropriate affect. Judgment & insight intact. Musculoskeletal : Cervical Spine Motor strength in the deltoid and biceps: Normal right side. Normal Left side Motor strength biceps and the wrist extensors: Normal right side . Normal left side Motor strength in the triceps muscle: Normal right side. Normal left side Deep tendon reflexes: Normal at the biceps. Normal at Brachioradialis. Normal at triceps Vertebral body tenderness to deep palpation over Cervical facet loading test: positive bilaterally Spurling test: positive bilaterally Neck distraction test: positive bilaterally Delmi sign: positive bilaterally Lumbar spine Motor strength lower extremities ,thigh and legs 5/5 Right side , 5/5 Left side Deep tendon reflexes : Normal Knee Jerk. Normal Ankle Jerk Vertebral body tenderness over L5 Archuleta Test positive Lumbar facet Loading Test: positive Right / positive Left Range of motion of the lumbar spine Flexion 30 degrees, extension 10 degrees Straight Leg Raise test: Left/ Right positive at < 35 degrees Gigi test: positive right / positive left. Severe tenderness over the Sacroiliac joint on the Right / Left sides Gaenslen test: positive bilaterally Seated flexion test: positive bilaterally. Sacral spine : Severe tenderness over the Sacroiliac joint: right side / left side Range of motion: Flexion of the lumbar spine <60 degrees Range of motion: Extension of the lumbar spine <20 degrees Gaenslen's Test positive Gigi test: positive right side / left side Thigh Thrust Test Sacral Thrust Test Imaging: MRI noncontrast of the lumbar spine from 09/17/23 reviewed Assessment/ Plan : Lumbar DDD Recommendation of R TFESI L5-S1 #1. May need a series of injections for optimal pain relief. Risks, benefits of procedure discussed and patient verbalized understanding. Admits to anti- coagulant use or medical history of diabetes. Protocol for discontinuation/ continuation of medications celso procedure discussed. All questions answered. I have spent greater than 30 minutes on patient care today. Dr Aranda was available by phone for the evaluation of this patient. The time was used to review the medical records including relevant urine studies and Prescription history (MAPs), review of the available imaging, evaluation and examination of the patient, coordination of care with the medical staff and if applicable referring physicians, as well as creation of the medical record PQRS Narrative: Smoking Status Never smoker Home Medications: Ambulatory Orders Metoprolol Succinate [Metoprolol Succinate ER] 50 mg PO DAILY 08/03/22 Triamterene-Hctz 37.5-25Mg [Dyazide 37.5-25 Capsule] 1 cap PO DAILY 08/03/22 Cyclobenzaprine [Flexeril] 5 mg PO TID PRN #30 tab 08/12/22 Aspirin [Adult Low Dose Aspirin EC] 81 mg PO BID 30 Days #60 tab 09/15/22 Docusate [Colace] 100 mg PO BID #60 capsule 09/15/22 Ferrous Sulfate [Iron (65 MG Elemental)] 325 mg PO DAILY #30 tab 09/15/22 ceFAZolin [Kefzol] 2 gm IVP Q8HR #120 each 09/15/22 diazePAM [Valium] 2 mg PO Q8HR PRN 5 Days #15 tab 09/15/22 oxyCODONE HCL/ACETAMINOPHEN [Percocet 5-325 mg] 1 tab PO Q6HR PRN 7 Days #28 tab 09/15/22 Controlled Substance Measures - Controlled Substance Measures Is patient prescribed a controlled substance at discharge?: No
== END ==
LOC: PNWHC3 08:55
PROVIDERS: ATTEND Specialist
DX: M48.062 Spinal stenosis, lumbar region with neurogenic claudication (principal); M51.16 Intervertebral disc disorders with radiculopathy, lumbar region; M47.26 Other spondylosis with radiculopathy, lumbar region; M19.90 Unspecified osteoarthritis, unspecified site; E11.9 Type 2 diabetes mellitus without complications; I10 Essential (primary) hypertension; Z79.899 Other long term (current) drug therapy; Z79.82 Long term (current) use of aspirin
CPT/HCPCS: 99211

== ENCOUNTER 2023-11-20 06:45 | Day surgery (SDC) | payer BC, OTHER ==
[~2023-11-20 06:45] MED LIST changes: +LACTATED RINGERS 1,000 ML IV SCH; -MIDAZOLAM 2 MG/2 ML VIAL IV PRN; -ROPIVACAINE/EPI/CLONIDINE/KET 50 ML SYRINGE MISCELLANE PRN; -TRANEXAMIC ACID IN NACL,ISO-OS 1,000 MG in SALINE 1 100ML.BAG IVPB PRN; -VANCOMYCIN 1,750 MG in SODIUM CHLORIDE 0.9% 500 ML 500 ML IVPB PRN
[2023-11-20 07:23] LABS: Glucose,Whole Blood 159 mg/dL (70-110)
[2023-11-20 07:43] VITALS: TEMP 98.3
[2023-11-20] MEDS ORDERED: IOPAMIDOL M200 10 ML VIAL ONE (08:02)
[2023-11-20] MEDS ORDERED: methylPREDNISolone ACETATE 40 MG/ML 1 ML VIAL ONE (08:02)
--- NOTE | 2023-11-20 08:12 | P.PCN ---
Date of Procedure: 11/20/23 Procedure(s) Performed: PREOPERATIVE DIAGNOSIS: 1-Lumbar radiculopathy . 2-lumbar degenerative disc disease. 3-lumbar spinal stenosis POSTOPERATIVE DIAGNOSIS: 1-lumbar radiculopathy. 2-lumbar degenerative disc disease. 3-lumbar spinal stenosis PROCEDURE 1. Transforaminal epidural steroid injection under fluoroscopic guidance at right L5-S1 level. (Fluoroscopy images stored on file in the radiology Department ) 2. Lumbar epidurogram . ANESTHESIA: Local with 1% lidocaine 3 ml. EBL: Minimal PROCEDURE INDICATION: The patient with low back pain and radiculopathy symptoms unresponsive to conservative treatment. PROCEDURE DESCRIPTION / TECHNIQUE: The patient was seen and identified in the preoperative area. Risks, benefits, complications, and alternatives were discussed with the patient. The patient agreed to proceed with the procedure and signed the consent, and vital signs were stable. Patient was taken to the OR and time out was completed. The patient was placed in the prone position on procedure table and a pillow was placed under the abdomen to reduce lumbar lordosis. The lumbosacral area was prepped and draped in the usual sterile fashion. Critical pause was taken. Vital signs were closely monitored during the procedure. Using oblique fluoroscopy, the chin of the ``Wiliam dog at Right L5-S1 level was identified, and the skin and deeper tissues just below was localized with 1% lidocaine. Subsequently, a 22-gauge 5-inch spinal needle was advanced under a tunneled view fluoroscopic guidance just underneath the chin of the ``Wiliam dog at the right L5-S1 Under lateral fluoroscopy, the needle was then advanced to the posterior border of the interforaminal space. After negative aspiration of CSF and blood and with no paresthesias, 1 mL Isovue 200 contrast dye was injected excellent epidurogram and outlining of the nerve root Subsequently, 3 mL of block solution containing 40 mg Depo-Medrol and 2 mL of 0.9% normal saline PF was injected. Needle was removed . At the end of the procedure, skin was cleansed, and bandages were applied. COMPLICATIONS:none DISPOSITION / PLANS: The patient was placed in a supine position and transferred to the recovery area in a stable condition for observation. There was no evidence of lower extremity motor or sensory deficit after the procedure. Patient was discharged from the recovery room after meeting discharge criteria. Home discharge instructions were given to the patient by the staff. The patient was reexamined prior to discharge.
--- NOTE | 2023-11-20 08:20 | FL ---
EXAMINATION TYPE: FL guided pain mgmt statistic DATE OF EXAM: 11/20/2023 HISTORY: Fluoroscopy time Total dose area product (DAP) in uGy*m?, mGy*cm? (or similar): 0.19557 IMPRESSION: 1. Fluoroscopy time.
[2023-11-20 08:25] VITALS: BP 117/79; PULSE 81; RESP 18
== END 2023-11-20 08:30 | disposition home or self-care (01) ==
LOC: ORPAIN 06:45
PROVIDERS: ATTEND Specialist
DX: M51.16 Intervertebral disc disorders with radiculopathy, lumbar region (principal); M47.26 Other spondylosis with radiculopathy, lumbar region; M48.061 Spinal stenosis, lumbar region without neurogenic claudication; E11.9 Type 2 diabetes mellitus without complications
CPT/HCPCS: 64483; J1030; Q9966

== ENCOUNTER → 2023-12-10 | Outpatient (CLI) | payer OTHER ==
[2023-12-10 10:02] VITALS: BP 138/76; PULSE 76; RESP 15; TEMP 98.5
--- NOTE | 2023-12-10 14:09 | P.PAINPG ---
PQRS Measure Charge Sheet Comment: HISTORY OF PRESENT ILLNESS: A 52 yr old male presents today w severe and chronic LBP x 1 yr secondary to DDD, spondylosis and facet arthropathy without myelopathy for evaluation s/p R TFESI L5-S1 #1. Pt states he experienced 100 % pain relief x 2 days s/p procedure. Pt states pain level is provoked at 8 /10 in intensity, constant, localized in the lower lumbar spine, predominantly axial, tingly in character w occasional shooting pain towards the R hip, knee and foot. Pain is provoked by standing from a sitting position. Pain is alleviated by physician guided home stretching from Dr Marinelli 5 times weekly since Sep 18 2023, heat, medications, topical, repositioning and rest. He could not continue PT due to R hip avascular necrosis and infection needing debridement twice in 2022. Oswestry axial pain score at 28. Interventional procedures include R TFESI L5-S1 x1 Medications include [place] 10/325mg , Flexeril REVIEW OF ORGAN SYSTEMS: CONSTITUTIONAL: No fevers or chills. No recent weight loss. NEUROLOGICAL: + numbness and tingling along the distal ext remities. No seizure disorders or headaches. MUSCULOSKELETAL: + pain PSYCHIATRIC: Denies current depression or suicidal thoughts. Physical Examinations : Constitutional : Cooperative , not in acute distress . Neurologic : Cranial nerve II to XII intact. No focal neurological deficits. Psychiatric : alert & oriented x 3. Matching mood & appropriate affect. Judgment & insight intact. Musculoskeletal : Cervical Spine Motor strength in the deltoid and biceps: Normal right side. Normal Left side Motor strength biceps and the wrist extensors: Normal right side . Normal left side Motor strength in the triceps muscle: Normal right side. Normal left side Deep tendon reflexes: Normal at the biceps. Normal at Brachioradialis. Normal at triceps Vertebral body tenderness to deep palpation over Cervical facet loading test: positive bilaterally Spurling test: positive bilaterally Neck distraction test: positive bilaterally Delmi sign: positive bilaterally Lumbar spine Motor strength lower extremities ,thigh and legs 5/5 Right side , 5/5 Left side Deep tendon reflexes : Normal Knee Jerk. Normal Ankle Jerk Vertebral body tenderness over L5 Archuleta Test positive Lumbar facet Loading Test: positive Right / positive Left Range of motion of the lumbar spine Flexion 30 degrees, extension 10 degrees Straight Leg Raise test: Left/ Right positive at < 35 degrees Gigi test: positive right < positive left. Severe tenderness over the Sacroiliac joint on the Right / Left sides Gaenslen test: positive bilaterally Seated flexion test: positive bilaterally. Sacral spine : Severe tenderness over the Sacroiliac joint: right side / left side Range of motion: Flexion of the lumbar spine <60 degrees Range of motion: Extension of the lumbar spine <20 degrees Gaenslen's Test positive BL Gigi test: positive right side < left side Thigh Thrust Test Sacral Thrust Test BL positive Imaging: MRI noncontrast of the lumbar spine from 09/17/23 reviewed Assessment/ Plan : Lumbar DDD, BL Sacroiliitis Recommendation of BL SI injections #1. May need a series of injections for optimal pain relief. Risks, benefits of procedure discussed and patient verbalized understanding. Admits to anti- coagulant use or medical history of diabetes. Protocol for discontinuation/ continuation of medications celso procedure discussed. Recommendation of medication management. Neurontin 100mg #60 #60 w 1 RF. Use, side effects, adverse reactions, safe storage discussed. Opiate/ narcotic agreement signed 12/10/23. All questions answered. I have spent greater than 30 minutes on patient care today. Dr Aranda was available by phone for the evaluation of this patient. The time was used to review the medical records including relevant urine studies and Prescription history (MAPs), review of the available imaging, evaluation and examination of the patient, coordination of care with the medical staff and if applicable referring physicians, as well as creation of the medical record PQRS Narrative: Smoking Status Never smoker Hx Alcohol Use (MH) No Home Medications: Ambulatory Orders Metoprolol Succinate [Metoprolol Succinate ER] 50 mg PO DAILY 08/03/22 Triamterene-Hctz 37.5-25Mg [Dyazide 37.5-25 Capsule] 1 cap PO DAILY 08/03/22 Docusate [Colace] 100 mg PO BID #60 capsule 09/15/22 oxyCODONE HCL/ACETAMINOPHEN [Percocet 5-325 mg] 1 tab PO Q6HR PRN 7 Days #28 tab 09/15/22 Cyclobenzaprine [Flexeril] 10 mg PO TID PRN 11/08/23 Dulaglutide [Trulicity] 4.5 mg SQ Q7D 11/08/23 HYDROcodone/APAP 10-325MG [[place] 10-325] 1 tab PO Q6HR PRN 11/08/23 Gabapentin [Neurontin] 100 mg PO BID 30 Days #60 cap 12/10/23 Controlled Substance Measures - Controlled Substance Measures Is patient prescribed a controlled substance at discharge?: Yes When asked, does pt state using other controlled substances?: Yes If prescribed controlled substance>3 days was MAPS reviewed?: Yes If Rx opioid, was Start Talking consent form obtained?: Yes Was information provided regarding opioid addiction?: Yes
== END ==
LOC: PNWHC3 08:46
PROVIDERS: ATTEND Specialist
DX: M51.36 Other intervertebral disc degeneration, lumbar region (principal); M47.816 Spondylosis without myelopathy or radiculopathy, lumbar region; M46.1 Sacroiliitis, not elsewhere classified; G89.29 Other chronic pain
CPT/HCPCS: 99211

== ENCOUNTER 2023-12-20 11:40 | Day surgery (SDC) | payer OTHER ==
[2023-12-20 12:11] VITALS: TEMP 98.1
[2023-12-20 12:14] LABS: Glucose,Whole Blood 116 mg/dL (70-110)
[2023-12-20] MEDS ORDERED: LACTATED RINGERS 1,000 ML IV SCH (12:15)
--- NOTE | 2023-12-20 12:27 | P.PCN ---
Date of Procedure: 12/20/23 Description of Procedure: Preoperative diagnoses: 1. Lumbosacral Spondylosis 2. Bilateral sacroiliitis. Postoperative diagnoses: Same as preoperative diagnosis. Procedure: Bilateral sacroiliac joint steroid injection under fluoroscopic guidance. Surgeon: Apolinar Russell M.D. Anesthesia: Lidocaine 1% 3ml Fluoroscopy image saved and stored EBL: None Procedure indication: The patient had a history of severe chronic low back pain, diagnosed with sacroiliitis and lumbar sacral facet arthropathy unresponsive to conservative treatment. Procedure description: The patient was seen and identified in the preoperative holding area, risks and benefits and alternative of the procedure and possible complications discussed with the patient, and he agreed with the preceding, patient signed the consent, an IV was started, and vital signs were monitored and were stable throughout the procedure, patient was placed in the prone position or table and the lumbosacral area was prepped and draped with a sterile fashion, vital signs were closely monitored during the procedure, the fluoroscopy camera was placed in the contralateral oblique view on the right sacroiliac joint and the lower part of the joint was identified a 2 mL then a 25-gauge Quincke-type spinal needle advanced slowly under fluoroscopy and placed in the posterior and inferior border of the right sacroiliac joint, placement confirmed with AP and lateral view, and after appropriate needle placement confirmed and after negative aspiration for heme and CSF and there was , 3 ml of Ropivacaine 0.5% and 40 mg of Kenalog injected after negative aspi ration, no paresthesia during the injection, no resistance to injection, and the needle was removed. The entire same procedure was repeated for the left sacroiliac joint Patient tolerated the procedure well without any complication. The patient returned to supine position after the back was cleaned and a Band- Aid applied, the patient transported to recovery room in stable condition and he was monitored for 30 minutes before he was discharged home and then patient was reexamined before going home and patient was discharged in stable condition and patient will follow up with the pain clinic in a few weeks
[2023-12-20] MEDS ORDERED: TRIAMCINOLONE ACETONIDE 40 MG/ML 1 ML VIAL ONE (12:35)
[2023-12-20] MEDS ORDERED: IOPAMIDOL M200 10 ML VIAL ONE (12:35)
[2023-12-20] MEDS ORDERED: ROPIVACAINE 5MG/ML 20ML VIAL ONE (12:35)
--- NOTE | 2023-12-20 12:54 | FL ---
EXAMINATION TYPE: FL guided pain mgmt statistic DATE OF EXAM: 12/20/2023 HISTORY: Fluoroscopy time Total dose area product (DAP) in uGy*m?, mGy*cm? (or similar): 0.41423 IMPRESSION: 1. Fluoroscopy time.
[2023-12-20 12:55] VITALS: RESP 18
[2023-12-20 13:39] VITALS: BP 116/63; PULSE 77
== END 2023-12-20 13:08 | disposition home or self-care (01) ==
LOC: ORPAIN 11:40
PROVIDERS: ATTEND Anesthesiology
DX: M46.1 Sacroiliitis, not elsewhere classified (principal); M47.817 Spondylosis without myelopathy or radiculopathy, lumbosacral region; E11.9 Type 2 diabetes mellitus without complications
CPT/HCPCS: J3301; Q9966; J2795; G0260

== ENCOUNTER → 2024-01-10 | Outpatient (CLI) | payer OTHER ==
[2024-01-10 10:34] VITALS: BP 128/62; PULSE 76; RESP 15; TEMP 98.1
--- NOTE | 2024-01-10 14:49 | P.PAINPG ---
PQRS Measure Charge Sheet Comment: HISTORY OF PRESENT ILLNESS: A 52 yr old male presents today w severe and chronic LBP x 1 yr secondary to DDD, spondylosis and facet arthropathy without myelopathy for evaluation s/p BL SI injection #1. Pt states he experienced 50 % pain relief x 3 wks s/p procedure. Pt states pain level is provoked at 8 /10 in intensity, constant, localized in the lower lumbar spine, predominantly axial, tingly in character w occasional shooting pain towards the L hip. Pain is provoked by standing from a sitting position. Pain is alleviated by physician guided home stretching from Dr Marinelli 5 times weekly since Sep 18 2023, heat, medications, topical, repositioning and rest. He could not continue PT due to R hip avascular necrosis and infection needing debridement twice in 2022. Oswestry axial pain score at 27. Interventional procedures include R TFESI L5-S1 x1, BL SI x1 Medications include [facility] [place] 10/325mg , Flexeril REVIEW OF ORGAN SYSTEMS: CONSTITUTIONAL: No fevers or chills. No recent weight loss. NEUROLOGICAL: + numbness and tingling along the distal extremities. No seizure disorders or headaches. MUSCULOSKELETAL: + pain PSYCHIATRIC: Denies current depression or suicidal thoughts. Physical Examinations : Constitutional : Cooperative , not in acute distress . Neurologic : Cranial nerve II to XII intact. No focal neurological deficits. Psychiatric : alert & oriented x 3. Matching mood & appropriate affect. Judgment & insight intact. Musculoskeletal : Cervical Spine Motor strength in the deltoid and biceps: Normal right side. Normal Left side Motor strength biceps and the wrist extensors: Normal right side . Normal left side Motor strength in the triceps muscle: Normal right side. Normal left side Deep tendon reflexes: Normal at the biceps. Normal at Brachioradialis. Normal at triceps Vertebral body tenderness to deep palpation over Cervical facet loading test: positive bilaterally Spurling test: positive bilaterally Neck distraction test: positive bilaterally Delmi sign: positive bilaterally Lumbar spine Motor strength lower extremities ,thigh and legs 5/5 Right side , 5/5 Left side Deep tendon reflexes : Normal Knee Jerk. Normal Ankle Jerk Vertebral body tenderness over L5 [place]ta Test positive Taut bands w twitch response over L L2- S1 Lumbar facet Loading Test: positive Right / positive Left Range of motion of the lumbar spine Flexion 30 degrees, extension 10 degrees Straight Leg Raise test: Left/ Right positive at < 35 degrees Gigi test: positive right < positive left. Severe tenderness over the Sacroiliac joint on the Right / Left sides Gaenslen test: positive bilaterally Seated flexion test: positive bilaterally. Sacral spine : Severe tenderness over the Sacroiliac joint: right side / left side Range of motion: Flexion of the lumbar spine <60 degrees Range of motion: Extension of the lumbar spine <20 degrees Gaenslen's Test positive BL Gigi test: positive right side < left side Thigh Thrust Test Sacral Thrust Test BL positive Imaging: MRI noncontrast of the lumbar spine from 09/17/23 reviewed Assessment/ Plan : Lumbar DDD, BL Sacroiliitis Recommendation of L TPIs L2-S1 #1. May need a series of injections for optimal pain relief. Risks, benefits of procedure discussed and patient verbalized understanding. Admits to anti- coagulant use or medical history of diabetes. Protocol for discontinuation/ continuation of medications celso procedure discussed. Recommendation of medication management. Increased Neurontin 300mg #60 #60 w 1 RF. Use, side effects, adverse reactions, safe storage discussed. Opiate/ narcotic agreement signed 12/10/23. All questions answered. I have spent greater than 30 minutes on patient care today. Dr Aranda was available by phone for the evaluation of this patient. The time was used to review the medical records including relevant urine studies and Prescription history (MAPs), review of the available imaging, evaluation and examination of the patient, coordination of care with the medical staff and if applicable referring physicians, as well as creation of the medical record PQRS Narrative: Smoking Status Never smoker Hx Alcohol Use (MH) No Home Medications: Ambulatory Orders Metoprolol Succinate [Metoprolol Succinate ER] 50 mg PO DAILY 08/03/22 Triamterene-Hctz 37.5-25Mg [Dyazide 37.5-25 Capsule] 1 cap PO DAILY 08/03/22 Docusate [Colace] 100 mg PO BID #60 capsule 09/15/22 Cyclobenzaprine [Flexeril] 10 mg PO TID PRN 11/08/23 Dulaglutide [Trulicity] 4.5 mg SQ Q7D 11/08/23 HYDROcodone/APAP 10-325MG [[place] 10-325] 1 tab PO Q6HR PRN 11/08/23 Gabapentin [Neurontin] 300 mg PO BID 30 Days #60 cap 01/10/24 Controlled Substance Measures - Controlled Substance Measures Is patient prescribed a controlled substance at discharge?: Yes When asked, does pt state using other controlled substances?: Yes If prescribed controlled substance>3 days was MAPS reviewed?: Yes
== END ==
LOC: PNWHC3 09:18
PROVIDERS: ATTEND Specialist
DX: M51.37 Other intervertebral disc degeneration, lumbosacral region (principal); M46.1 Sacroiliitis, not elsewhere classified; M47.817 Spondylosis without myelopathy or radiculopathy, lumbosacral region
CPT/HCPCS: 99211

== ENCOUNTER 2024-01-22 07:24 | Day surgery (SDC) | payer OTHER ==
[2024-01-18 14:17] VITALS: BMI 34.4
[2024-01-22 07:46] LABS: Glucose,Whole Blood 147 mg/dL (70-110)
[2024-01-22 07:48] VITALS: TEMP 38
[2024-01-22] MEDS ORDERED: methylPREDNISolone ACETATE 40 MG/ML 1 ML VIAL ONE (08:40)
[2024-01-22] MEDS ORDERED: ROPIVACAINE 5MG/ML 20ML VIAL ONE (08:40)
--- NOTE | 2024-01-22 08:46 | P.PCN ---
Date of Procedure: 01/22/24 Description of Procedure: Procedure: left-sided lumbar paraspinal trigger point injection Lumbar paraspinal, Quadratus, and Lower latisimus. Preoperative Diagnosis: myofascial pain syndrome Postoperative diagnosis: Same Anesthesia: local only Surgeon: Nicole Huynh MD Indications for procedure: Patient with myofascial pain and palpable trigger points in the above mentioned muscles. The patient consents for an injection after an explanation of risks including but not limited to bleeding and infection, benefits, and alternatives and the patient has signed a consent form indicating understanding of all of them. Description of procedure: After informed consent was obtained the patient's painful area was sterilely prepped in the usual fashion with ChloraPrep. The trigger points were identified via palpation and the muscles were marked sterilely. Each trigger point was injected with a 25-gauge one and a half inch needle. At that point a solution consisting of 18 ml of 0.5% ropivacaine with 40mg of depomedrol was distributed evenly over the trigger points. The patient's vital signs were stable afterwards and the procedure was tolerated well. Patient was discharged home with follow-up instructions. It was explained to the patient that these injections are not curative but may help with the current symptoms. In order to strengthen the muscles involved, there needs to be dedicated exercise routine to strengthen the muscles and avoid significant muscle spasms..
[2024-01-22 08:52] VITALS: RESP 16
[2024-01-22 09:03] VITALS: BP 119/75; PULSE 70
== END 2024-01-22 09:07 | disposition home or self-care (01) ==
LOC: ORPAIN 07:24
PROVIDERS: ATTEND Hospitalist
DX: M79.18 Myalgia, other site (principal); E11.9 Type 2 diabetes mellitus without complications
CPT/HCPCS: 20553; J2795; J1010

== ENCOUNTER → 2024-03-04 | Outpatient (CLI) | payer OTHER ==
[2024-03-04 18:00] LABS: INR 0.9 (<1.2); Partial Thromboplastin Time 23.1 sec (22.0-30.0); Prothrombin Time 10.1 sec (10.0-12.5)
[2024-03-05 02:16] LABS: HCT 43.2 % (39.6-50.0); HGB 14.9 g/dL (13.0-17.0); MCH 32.2 pg (27.0-32.0); MCHC 34.5 g/dL (32.0-37.0); MCV 93.3 FL (80.0-97.0); Mean Platelet Volume 10.8 FL (9.5-12.2); NRBC Per 100 WBC 0 X 10*3/uL (0.00-0.01); Platelet Count 374 X 10*3/uL (140-440); RBC 4.63 X 10*6/uL (4.40-5.60); RDW 13.2 % (11.5-14.5); WBC 7.61 X 10*3/uL (4.50-10.00)
[2024-03-05 02:40] LABS: ALT 51 U/L (10-49); AST 31 U/L (14-35); Albumin/Globulin Ratio 1.67 Ratio (1.60-3.17); Alkaline Phosphatase 133 U/L (41-126); Calcium 9.7 mg/dL (8.7-10.3); Carbon Dioxide 26.9 mmol/L (21.6-31.8); Chloride 100 mmol/L (96-109); Glucose 107 mg/dL (70-110); Potassium 4.2 mmol/L (3.5-5.5); Sodium 141 mmol/L (135-145); Total Bilirubin 0.4 mg/dL (0.3-1.2)
== END | disposition home or self-care (01) ==
LOC: LABPAT 16:27
PROVIDERS: ATTEND Orthopaedic Surgery
DX: Z01.818 Encounter for other preprocedural examination (principal); M16.12 Unilateral primary osteoarthritis, left hip; Z22.322 Carrier or suspected carrier of Methicillin resistant Staphylococcus aureus; E11.65 Type 2 diabetes mellitus with hyperglycemia; R00.0 Tachycardia, unspecified
CPT/HCPCS: 80053; 83036; 85027; 85610; 85730; 86850; 86900; 86901; 87070; 93005

== ENCOUNTER 2024-03-19 12:34 | Inpatient (IN) | payer OTHER ==
[2024-03-06 12:04] VITALS: BMI 34.4
[~2024-03-19 12:34] MED LIST changes: +ACETAMINOPHEN TAB 500 MG TAB PO PRN; +DEXAMETHASONE SOD PHOSPHATE 10 MG/ML 1 ML VIAL IV PRN; +DOCUSATE 100 MG CAP PO PRN; +FAMOTIDINE 20 MG/2 ML VIAL IVP PRN; +KETOROLAC 15 MG/ML 1 ML VIAL IVP PRN; -LACTATED RINGERS 1,000 ML IV SCH; +ONDANSETRON 4 MG/2 ML VIAL IVP PRN; +ROPIVACAINE/EPI/CLONIDINE/KET 50 ML SYRINGE MISCELLANE PRN; +TRANEXAMIC 1,000 MG/100ML-NACL 1,000 MG in SALINE 1 100ML.BAG IV PRN; +TRANEXAMIC 1,000 MG/100ML-NACL 1,000 MG in SALINE 1 100ML.BAG IVPB PRN; +oxyCODONE ER 10 MG TAB.ER.12H PO PRN
[2024-03-19 16:47] LABS: Glucose,Whole Blood 157 mg/dL (70-110)
[2024-03-19] MEDS ORDERED: HYDROcodone/APAP 5-325MG 1 EACH TAB ONE (18:17)
[2024-03-19] MEDS ORDERED: HYDROmorphone 1 MG/ML 1 ML SYRINGE ONE ×2 (20:21→23:47)
[2024-03-19 20:54] LABS: Glucose,Whole Blood 151 mg/dL (70-110)
[2024-03-20] MEDS ORDERED: HYDROcodone/APAP 5-325MG 1 EACH TAB ONE ×2 (03:29→10:30)
[2024-03-20 06:24] LABS: Glucose,Whole Blood 197 mg/dL (70-110)
[2024-03-20 11:41] LABS: Glucose,Whole Blood 233 mg/dL (70-110)
--- NOTE | 2024-04-16 17:00 | XR ---
Fluoroscopy INDICATION: Pain FINDINGS: Fluoroscopy time: 29.3 seconds. Total dose area product (DAP) in uGy*m?, mGy*cm? (or similar): 2.5179 Images obtained: 0. IMPRESSION: 1. Documentation of fluoroscopy.
== END 2024-03-20 14:45 | disposition home or self-care (01) | DRG 324 ==
LOC: OR 12:34 → DISRECOVER 13:34 → OR 03-20 14:00 → DISRECOVER 03-20 14:52 → UNDOADMIN 03-20 14:52
PROVIDERS: ADMIT Orthopaedic Surgery; ATTEND Orthopaedic Surgery
PROC: 0SRB04A Replacement of Left Hip Joint with Ceramic on Polyethylene Synthetic Substitute, Uncemented, Open Approach (ICD-10-PCS; principal; 2024-03-19)
DX: M16.12 Unilateral primary osteoarthritis, left hip (principal); M87.052 Idiopathic aseptic necrosis of left femur; E11.9 Type 2 diabetes mellitus without complications; Z96.641 Presence of right artificial hip joint; I10 Essential (primary) hypertension; F32.A Depression, unspecified; Z87.891 Personal history of nicotine dependence; Z79.899 Other long term (current) drug therapy; Z79.84 Long term (current) use of oral hypoglycemic drugs

== ENCOUNTER 2024-08-17 11:41 | Emergency (ER) | payer OTHER ==
[2024-08-17 11:52] VITALS: TEMP 98.1
[2024-08-17] MEDS: KETOROLAC 15 MG/ML 1 ML VIAL IVP STA (12:27)
[2024-08-17 12:46] LABS: Basophils % (A) 1 %; Eosinophils # (A) 0.2 k/uL (0-0.7); Eosinophils % (A) 3 %; HCT 41.3 % (39.0-53.0); Lymphocytes # (A) 1.5 k/uL (1.0-4.8); Lymphocytes % (A) 26 %; MCH 30.3 pg (25.0-35.0); MCHC 33.8 g/dL (31.0-37.0); MCV 89.6 fL (80.0-100.0); Mean Platelet Volume 7.5; Monocytes # (A) 0.4 k/uL (0-1.0); Monocytes % (A) 7 %; Neutrophils # (A) 3.5 k/uL (1.3-7.7); Neutrophils % (A) 60 %; Platelet Count 248 k/uL (150-450); RBC 4.61 m/uL (4.30-5.90); RDW 13.9 % (11.5-15.5); WBC 5.8 k/uL (3.8-10.6)
--- NOTE | 2024-08-17 12:48 | XR ---
EXAMINATION TYPE: XR chest 2V DATE OF EXAM: 08/17/2024 12:40 PM COMPARISON: None CLINICAL INDICATION: Male, 53 years old with history of Chest Pain; [facility] TECHNIQUE: XR chest 2V Frontal and lateral views of the chest. FINDINGS: Lungs/Pleura: Inferior airspace densities projecting over the spine lateral view. There is no evidenc e of pleural effusion, focal consolidation, or pneumothorax. Pulmonary vascularity: Unremarkable. Heart/mediastinum: Cardiomediastinal silhouette is unremarkable. Musculoskeletal: No acute osseous pathology. IMPRESSION: The airspace opacities projecting over the spine on lateral view. [facility], , 08/17/2024 12:46 PM
[2024-08-17 13:00] LABS: ALT 85 U/L (4-49); AST 48 U/L (17-59); African American GFR (CKD) >90 (>60 ml/min/1.73 sqM); Albumin 4.8 g/dL (3.5-5.0); Alkaline Phosphatase 132 U/L (38-126); Anion Gap 8 mmol/L; Blood Urea Nitrogen 9 mg/dL (9-20); Calcium 9.6 mg/dL (8.4-10.2); Carbon Dioxide 28 mmol/L (22-30); Chloride 103 mmol/L (98-107); Glucose 127 mg/dL (74-99); Non-African American GFR(CKD) >90 (>60 ml/min/1.73 sqM); Potassium 5.2 mmol/L (3.5-5.1); Sodium 139 mmol/L (137-145); Total Bilirubin 0.5 mg/dL (0.2-1.3); Total Protein 7.7 g/dL (6.3-8.2)
--- NOTE | 2024-08-17 13:00 | ED ---
General Adult HPI - General Chief complaint: Chest Pain Stated complaint: CHEST PAIN Time Seen by Provider: 08/17/24 12:00 Source: patient, RN notes reviewed, old records reviewed Mode of arrival: ambulatory Limitations: no limitations - History of Present Illness Initial comments: This is a 53-year-old male who presents to the emergency department complaining of right-sided chest pain. Patient states if he sits still it does not hurt but if he takes deep breath or moves a certain way it hurts and there is 1 spot if he pressed on the anterior chest that hurts. Patient states he also has some pain in the back in the same area but again only hurts with certain movements or deep breathing. Patient denies any injury. Patient states the only thing has been doing recently is fishing. Patient denies any heavy lifting or any injury that he knows of. Patient denies any fever chills or cough. Patient denies any difficulty breathing shortness of breath. Patient denies any diaphoretic episode. Patient has any abdominal pain. Patient denies any nausea vomiting or diarrhea. - Related Data Home Medications Medication Instructions Recorded Confirmed Metoprolol Succinate [Metoprolol 50 mg PO QAM 08/03/22 03/06/24 Succinate ER] Triamterene-Hctz 37.5-25Mg 1 cap PO QAM 08/03/22 03/06/24 [Dyazide 37.5-25 Capsule] Atorvastatin [Lipitor] 20 mg PO DAILY 01/22/24 03/06/24 Hydrocodone-Acetamin 7.5 - 325 mg PO QID PRN 03/06/24 03/06/24 Mupirocin 2% Oint [Bactroban 2% 1 applic NASAL BID 03/06/24 03/06/24 Oint] Ozempic(Unknown Dose) 1 dose SQ WE 03/06/24 03/06/24 tiZANidine HCL [Zanaflex] 4 mg PO HS PRN MDD muscle relaxant 03/06/24 03/06/24 Previous Rx's Medication Instructions Recorded Gabapentin [Neurontin] 300 mg PO BID 30 Days #60 cap 01/10/24 Ketorolac [Toradol] 10 mg PO Q8HR #15 tab 08/17/24 Allergies Allergy/AdvReac Type Severity Reaction Status Date / Time No Known Allergies Allergy Verified 08/17/24 11:52 Review of Systems ROS Statement: Those systems with pertinent positive or pertinent negative responses have been documented in the HPI. ROS Other: All systems not noted in ROS Statement are negative. Past Medical History Past Medical History: Diabetes Mellitus, Hypertension, Osteoarthritis (OA) Additional Past Medical History / Comment(s): Hx post op infection post rt hip replacement- was hospitalized for 60 days, had wound vac, PICC line for ABX. History of Any Multi-Drug Resistant Organisms: None Reported Past Surgical History: Joint Replacement Additional Past Surgical History / Comment(s): wisdom teeth & top teeth removed, R anterior total hip arthroplasty 08/01/22-hx post op infection., PAIN CLINIC PROCEDURE Past Anesthesia/Blood Transfusion Reactions: No Reported Reaction Past Psychological History: No Psychological Hx Reported Smoking Status: Never smoker Past Alcohol Use History: Rare Past Drug Use History: None Reported - Past Family History Mother Family Medical History: No Reported History General Exam - General Exam Comments Initial Comments: GENERAL: Patient is well-developed and well-nourished. Patient is nontoxic and well- hydrated and is in no acute distress. ENT: Neck is soft and supple. No significant lymphadenopathy is noted. Oropharynx is clear. Moist mucous membranes. Neck has full range of motion without eliciting any pain. EYES: The sclera were anicteric and conjunctiva were pink and moist. Extraocular movements were intact and pupils were equal round and reactive to light. Ey elids were unremarkable. PULMONARY: Unlabored respirations. Good breath sounds bilaterally. No audible rales rhonchi or wheezing was noted. CARDIOVASCULAR: There is a regular rate and rhythm without any murmurs gallops or rubs. Chest pain is reproducible at [address] under the right nipple. No area of erythema or rashes ABDOMEN: Soft and nontender with normal bowel sounds. SKIN: Skin is clear with no lesions or rashes and otherwise unremarkable. NEUROLOGIC: Patient is alert and oriented x3. Cranial nerves II through XII are grossly intact. Motor and sensory are also intact. Normal speech, volume and content. Symmetrical smile. MUSCULOSKELETAL: Normal extremities with adequate strength and full range of motion. No lower extremity swelling or edema. No calf tenderness. LYMPHATICS: No significant lymphadenopathy is noted PSYCHIATRIC: Normal psychiatric evaluation. Limitations: no limitations Course Vital Signs 08/17/24 11:49 Temperature 98.1 F Pulse Rate 91 Respiratory 18 Rate Blood Pressure 132/76 O2 Sat by Pulse 99 Oximetry Medical Decision Making - Medical Decision Making EKG is interpreted by myself but EKG shows sinus rhythm at 84 bpm IN was under 75 QRS is 82 QT interval 326 QTc is 367. Patient's EKG shows no ST segment elevation or depression. Was pt. sent in by a medical professional or institution (JOANN Garg, PROFESSIONAL MODEL, urgent care, hospital, or fdc...) When possible be specific @ -No Did you speak to anyone other than the patient for history (EMS, parent, family, police, friend...)? What history was obtained from this source @ -No Did you review nursing and triage notes (agree or disagree)? Why? @ -I reviewed and agree with nursing and triage notes Were old charts reviewed (outside hosp., previous admission, EMS record, old EKG, old radiological studies, urgent care reports/EKG's, fdc records)? Report findings @ -No old charts were reviewed Differential Diagnosis? @ -Differential Chest Pain: Stable Angina, Unstable Angina, STEMI, NSTEMI Aortic Dissection, Pneumothorax, Musculoskeletal, Esophageal Spasm GERD, Cholecystitis, Pancreatitis, Zoster, this is not meant to be an all-inclusive list. EKG interpreted by me (3pts min.). @ -As above X-rays interpreted by me (1pt min.). @ -Chest x-ray shows no acute CT interpreted by me (1pt min.). @ -CT of the chest shows no pulmonary embolism or any other acute abnormality. U/S interpreted by me (1pt. min.). @ -None done What testing was considered but not performed or refused? (CT, X-rays, U/S, labs)? Why? @ -None What meds were considered but not given or refused? Why? @ -None Did you discuss the management of the patient with other professionals (professionals i.e. JOANN Garg, PROFESSIONAL MODEL, lab, RT, psych nurse, geriatric social worker, tax lawyer, teacher, youth probation officer, oil field caser)? Give summary @ -No Was smoking cessation discussed for >3mins.? @ -No Was critical care preformed (if so, how long)? @ -No Were there social determinants of health that impacted care today? How? (Homelessness, low income, unemployed, alcoholism, drug addiction, transportation, low edu. Level, literacy, decrease access to med. care, [facility], rehab)? @ -No Was there de-escalation of care discussed even if they declined (Discuss DNR or withdrawal of care, Hospice)? DNR status @ -No What co-morbidities impacted this encounter? (DM, HTN, Smoking, COPD, CAD, Ca ncer, CVA, ARF, Chemo, Hep., AIDS, mental health diagnosis, sleep apnea, morbid obesity)? @ -None Was patient admitted / discharged? Hospital course, mention meds given and route, prescriptions, significant lab abnormalities, going to OR and other pertinent info. @ -Patient received Toradol and his pain was reduced. Patient could still reproduce his pain with certain twisting motions. Undiagnosed new problem with uncertain prognosis? @ -No Drug Therapy requiring intensive monitoring for toxicity (Heparin, Nitro, Insulin, Cardizem)? @ -No Were any procedures done? @ -No Diagnosis/symptom? @ -Chest wall pain Acute, or Chronic, or Acute on Chronic? @ -Acute Uncomplicated (without systemic symptoms) or Complicated (systemic symptoms)? @ -Uncomplicated Side effects of treatment? @ -No Exacerbation, Progression, or Severe Exacerbation? @ -No Poses a threat to life or bodily function? How? (Chest pain, USA, PR, pneumonia, PE, COPD, DKA, ARF, appy, cholecystitis, CVA, Diverticulitis, Homicidal, Suicidal, threat to staff... and all critical care pts) @ -No - Lab Data Result diagrams: 08/17/24 12:26 08/17/24 12:26 Lab Results 08/17/24 08/17/24 08/17/24 Range/Units 12:26 12:26 12:26 WBC 5.8 (3.8-10.6) k/uL RBC 4.61 (4.30-5.90) m/uL Hgb 14.0 (13.0-17.5) gm/dL Hct 41.3 (39.0-53.0) % MCV 89.6 (80.0-100.0) fL MCH 30.3 (25.0-35.0) pg MCHC 33.8 (31.0-37.0) g/dL RDW 13.9 (11.5-15.5) % Plt Count 248 (150-450) k/uL MPV 7.5 Neutrophils % 60 % Lymphocytes % 26 % Monocytes % 7 % Eosinophils % 3 % Basophils % 1 % Neutrophils # 3.5 (1.3-7.7) k/uL Lymphocytes # 1.5 (1.0-4.8) k/uL Monocytes # 0.4 (0-1.0) k/uL Eosinophils # 0.2 (0-0.7) k/uL Basophils # 0.0 (0-0.2) k/uL D-Dimer 1.37 H (<0.60) mg/L FEU Sodium 139 (137-145) mmol/L Potassium 5.2 H (3.5-5.1) mmol/L Chloride 103 (98-107) mmol/L Carbon Dioxide 28 (22-30) mmol/L Anion Gap 8 mmol/L BUN 9 (9-20) mg/dL Creatinine 0.92 (0.66-1.25) mg/dL Est GFR (CKD-EPI)AfAm >90 (>60 ml/min/1.73 sqM) Est GFR (CKD-EPI)NonAf >90 (>60 ml/min/1.73 sqM) Glucose 127 H (74-99) mg/dL Calcium 9.6 (8.4-10.2) mg/dL Magnesium 2.0 (1.6-2.3) mg/dL Total Bilirubin 0.5 (0.2-1.3) mg/dL AST 48 (17-59) U/L ALT 85 H (4-49) U/L Alkaline Phosphatase 132 H (38-126) U/L Troponin I (0.000-0.034) ng/mL Total Protein 7.7 (6.3-8.2) g/dL Albumin 4.8 (3.5-5.0) g/dL 08/17/24 Range/Units 12:26 WBC (3.8-10.6) k/uL RBC (4.30-5.90) m/uL Hgb (13.0-17.5) gm/dL Hct (39.0-53.0) % MCV (80.0-100.0) fL MCH (25.0-35.0) pg MCHC (31.0-37.0) g/dL RDW (11.5-15.5) % Plt Count (150-450) k/uL MPV Neutrophils % % Lymphocytes % % Monocytes % % Eosinophils % % Basophils % % Neutrophils # (1.3-7.7) k/uL Lymphocytes # (1.0-4.8) k/uL Monocytes # (0-1.0) k/uL Eosinophils # (0-0.7) k/uL Basophils # (0-0.2) k/uL D-Dimer (<0.60) mg/L FEU Sodium (137-145) mmol/L Potassium (3.5-5.1) mmol/L Chloride (98-107) mmol/L Carbon Dioxide (22-30) mmol/L Anion Gap mmol/L BUN (9-20) mg/dL Creatinine (0.66-1.25) mg/dL Est GFR (CKD-EPI)AfAm (>60 ml/min/1.73 sqM) Est GFR (CKD-EPI)NonAf (>60 ml/min/1.73 sqM) Glucose (74-99) mg/dL Calcium (8.4-10.2) mg/dL Magnesium (1.6-2.3) mg/dL Total Bilirubin (0.2-1.3) mg/dL AST (17-59) U/L ALT (4-49) U/L Alkaline Phosphatase (38-126) U/L Troponin I <0.012 (0.000-0.034) ng/mL Total Protein (6.3-8.2) g/dL Albumin (3.5-5.0) g/dL Disposition Clinical Impression: Chest wall pain Disposition: HOME SELF-CARE Condition: Good Instructions (If sedation given, give patient instructions): Chest Wall Pain (ED) Prescriptions: Ketorolac [Toradol] 10 mg PO Q8HR #15 tab Is patient prescribed a controlled substance at d/c from ED?: No Referrals: Bakari Vasquez MD [Primary Care Provider] - 1-2 days Time of Disposition: 14:28
--- NOTE | 2024-08-17 14:14 | CT ---
EXAMINATION TYPE: CT chest angio for PE DATE OF EXAM: 08/17/2024 2:01 PM COMPARISON: Previous chest radiograph 08/17/2024. CLINICAL INDICATION: Male, 53 years old with history of Elevated D-dimer, chest pain; Elevated dimer, chest pain TECHNIQUE/CONTRAST: CTA scan of the thorax is performed with IV Contrast, patient injected with 100 mL of Isovue 370, MIP images are created and reviewed these are created on a separate workstation.. CT DLP: 700.9 mGycm, Automated exposure control for dose reduction was used. FINDINGS: Pulmonary Artery: There is no evidence for a filling defect within the pulmonary vasculature to sugge st acute pulmonary embolism. The pulmonary artery is of normal size. Lungs/Pleura: No evidence of focal consolidation, pleural effusion or pneumothorax. Airway: Large airways are patent. Heart: Heart is within normal limits for size. Vasculature: No evidence of aortic aneurysm. Mediastinum: No gross evidence of adenopathy. Borderline mildly prominent right hilar node measuring up to 10 mm in short axis. Musculoskeletal: No acute osseous abnormalities Soft Tissues/lymph nodes: Unremarkable. Lower neck: No significant findings. Upper Abdomen: No significant findings. IMPRESSION: No evidence of acute pulmonary embolism or acute pulmonary pathology. [facility], , 08/17/2024 2:11 PM
[2024-08-17 14:42] VITALS: BP 134/85; PULSE 81; RESP 20
== END 2024-08-17 14:41 | disposition home or self-care (01) ==
LOC: EC 11:41
DX: R07.89 Other chest pain (principal)
CPT/HCPCS: 36415; 93005; 85379; 80053; 83735; 84484; 85025; 71046; 71275; 99285; 96374; J1885; Q9967

== ENCOUNTER 2024-12-31 10:26 | Emergency (ER) | payer BC, OTHER ==
[2024-12-31 10:29] VITALS: RESP 18
--- NOTE | 2024-12-31 11:13 | ED ---
Abdominal Pain HPI - General Chief Complaint: Abdominal Pain Stated Complaint: Abd Pain Time Seen by Provider: 12/31/24 10:42 Source: patient, RN notes reviewed Mode of arrival: ambulatory Limitations: no limitations - History of Present Illness MD Complaint: abdominal pain Onset/Timin -: week(s) Location: [facility] Radiation: none Migration to: no migration Severity scale (1-10): 8 Quality: stabbing, sharp Consistency: intermittent Worsens With: nothing Associated Symptoms: anorexia Treatments Prior to Arrival: prescription analgesics - Related Data Home Medications Medication Instructions Recorded Confirmed Atorvastatin [Lipitor] 20 mg PO DAILY 01/22/24 12/31/24 tiZANidine HCL [Zanaflex] 4 mg PO HS 03/06/24 12/31/24 HYDROcodone/APAP 7.5-325MG [[place] 1 tab PO BID 12/31/24 12/31/24 7.5-325] Metoprolol Succinate (ER) [Toprol 50 mg PO DAILY 12/31/24 12/31/24 Xl] Pregabalin [Lyrica] 150 mg PO TID 12/31/24 12/31/24 Semaglutide [Ozempic] 1 mg SQ TH 12/31/24 12/31/24 Venlafaxine HCl ER [Effexor Xr] 37.5 mg PO HS 12/31/24 12/31/24 lisinopriL [Zestril] 2.5 mg PO DAILY 12/31/24 12/31/24 Allergies Allergy/AdvReac Type Severity Reaction Status Date / Time No Known Allergies Allergy Verified 12/31/24 11:38 Review of Systems ROS Statement: Those systems with pertinent positive or pertinent negative responses have been documented in the HPI. ROS Other: All systems not noted in ROS Statement are negative. Past Medical History Past Medical History: Diabetes Mellitus, Hypertension, Osteoarthritis (OA) Additional Past Medical History / Comment(s): Hx post op infection post rt hip replacement- was hospitalized for 60 days, had wound vac, PICC line for ABX. History of Any Multi-Drug Resistant Organisms: None Reported Past Surgical History: Joint Replacement Additional Past Surgical History / Comment(s): wisdom teeth & top teeth removed, R anterior total hip arthroplasty 08/01/22-hx post op infection., PAIN CLINIC PROCEDURE Past Anesthesia/Blood Transfusion Reactions: No Reported Reaction Past Psychological History: No Psychological Hx Reported Smoking Status: Never smoker Past Alcohol Use History: Rare Past Drug Use History: None Reported - Past Family History Mother Family Medical History: No Reported History General Exam Limitations: no limitations General appearance: alert, in no apparent distress Head exam: Present: atraumatic, normocephalic, normal inspection Eye exam: Present: normal appearance, PERRL, EOMI. Absent: scleral icterus, conjunctival injection, periorbital swelling ENT exam: Present: normal exam, mucous membranes moist Neck exam: Present: normal inspection. Absent: tenderness, meningismus, lymphadenopathy Respiratory exam: Present: normal lung sounds bilaterally. Absent: respiratory distress, wheezes, rales, rhonchi, stridor, accessory muscle use, decreased breath sounds, prolonged expiratory Cardiovascular Exam: Present: regular rate, normal rhythm, normal heart sounds. Absent: systolic murmur, diastolic murmur, rubs, gallop, clicks GI/Abdominal exam: Present: soft, normal bowel sounds. Absent: distended, tenderness (Negative LLQ tenderness, tympanic tenderness), guarding, rebound, rigid Extremities exam: Present: normal inspection, full ROM, normal capillary refill. Absent: tenderness (Negative bilateral hip tenderness, overlying erythema), pedal edema, joint swelling, calf tenderness Back exam: Present: normal inspection Neurological exam: Present: alert, oriented X3, CN II-XII intact Psychiatric exam: Present: normal affect, normal mood Skin exam: Present: warm, dry, intact, normal color. Absent: rash Course Vital Signs 12/31/24 10:27 Temperature 98.4 F Pulse Rate 101 H Respiratory 18 Rate Blood Pressure 163/83 O2 Sat by Pulse 96 Oximetry Medical Decision Making - Medical Decision Making Was pt. sent in by a medical professional or institution (, PA, ELECTRICAL INSTALLER, urgent care, hospital, or detention...) When possible be specific @ -[No] Did you speak to anyone other than the patient for history (EMS, parent, family, police, friend...)? What history was obtained from this source @ -[No] Did you review nursing and triage notes (agree or disagree)? Why? @ -[I reviewed and agree with nursing and triage notes] Were old charts reviewed (outside hosp., previous admission, EMS record, old EKG, old radiological studies, urgent care reports/EKG's, detention records)? Report findings @ -[No old charts were reviewed] Differential Diagnosis (chest pain, altered mental status, abdominal pain women, abdominal pain men, vaginal bleeding, weakness, fever, dyspnea, syncope, headache, dizziness, GI bleed, back pain, seizure, CVA, palpatations, mental health, musculoskeletal)? @ -Differential Abdominal Pain Men: Appendicitis, cholecystitis, diverticulosis, ischemic bowel, pancreatitis, hepatitis, UTI, gastroenteritis, AAA, incarcerated hernia, bowel obstruction, constipation, inflammatory bowel, hepatitis, peptic ulcer disease, splenic infarction, perforated viscus, testicular torsion, this is not meant to be an all-inclusive list EKG interpreted by me (3pts min.). @ -Not done X-rays interpreted by me (1pt min.). @ -[None done] CT interpreted by me (1pt min.). @ -[None done] U/S interpreted by me (1pt. min.). @ -[None done] What testing was considered but not performed or refused? (CT, X-rays, U/S, labs)? Why? @ -[None] What meds were considered but not given or refused? Why? @ -[None] Did you discuss the management of the patient with other professionals (professionals i.e. , PA, ELECTRICAL INSTALLER, lab, RT, psych nurse, social work specialist, quality compliance coordinator, teacher, crime prevention police officer, major case detective)? Give summary @ -[No] Was smoking cessation discussed for >3mins.? @ -[No] Was critical care preformed (if so, how long)? @ -[No] Were there social determinants of health that impacted care today? How? (Homelessness, low income, unemployed, alcoholism, drug addiction, transportation, low edu. Level, literacy, decrease access to med. care, group home, rehab)? @ -[No] Was there de-escalation of care discussed even if they declined (Discuss DNR or withdrawal of care, Hospice)? DNR status @ -[No] What co-morbidities impacted this encounter? (DM, HTN, Smoking, COPD, CAD, Cancer, CVA, ARF, Chemo, Hep., AIDS, mental health diagnosis, sleep apnea, morb id obesity)? @ -[None] Was patient admitted / discharged? Hospital course, mention meds given and ro pennie, prescriptions, significant lab abnormalities, going to OR and other pertinent info. @ -[hospital course] patient declined observation admission to monitor lipase levels and provide IVF. Patient states he will increase oral fluid intake and follow-up with PCP. Patient states he will return if symptoms worsen. Undiagnosed new problem with uncertain prognosis? @ -[No] Drug Therapy requiring intensive monitoring for toxicity (Heparin, Nitro, Insulin, Cardizem)? @ -[No] Were any procedures done? @ -[No] Diagnosis/symptom? @ -Elevated lipase levels, LLQ pain Acute, or Chronic, or Acute on Chronic? @ -Acute Uncomplicated (without systemic symptoms) or Complicated (systemic symptoms)? @ -Complicated Side effects of treatment? @ -[No] Exacerbation, Progression, or Severe Exacerbation? @ -[No] Poses a threat to life or bodily function? How? (Chest pain, USA, AR, pneumonia, PE, COPD, DKA, ARF, appy, cholecystitis, CVA, Diverticulitis, Homicidal, Suicidal, threat to staff... and all critical care pts) @ -[No] - Lab Data Result diagrams: 12/31/24 11:30 12/31/24 11:30 Lab Results 12/31/24 12/31/24 12/31/24 Range/Units 11:30 11:30 11:30 WBC 7.20 (4.50-10.00) 10*3/uL RBC 4.82 (4.40-5.60) 10*6/uL Hgb 15.9 (13.0-17.0) g/dL Hct 43.8 (39.6-50.0) % MCV 90.9 (80.0-97.0) fL MCH 33.0 H (27.0-32.0) pg MCHC 36.3 (32.0-37.0) g/dL Plt Count 324 (140-440) 10*3/uL MPV 10.0 (9.5-12.2) fL Immature Gran % (Auto) 0.4 % Neutrophils % 67.3 % Lymphocytes % 22.1 % Monocytes % 8.3 % Eosinophils % 1.5 % Basophils % 0.4 % Immature Gran # 0.03 (0.00-0.04) 10*3/uL Neutrophils # 4.84 (1.80-7.70) 10*3/uL Lymphocytes # 1.59 (0.90-5.00) 10*3/uL Monocytes # 0.60 (0.20-1.00) 10*3/uL Eosinophils # 0.11 (0.04-0.35) 10*3/uL Basophils # 0.03 (0.00-0.10) 10*3/uL Sodium 140 (137-145) mmol/L Potassium 4.4 (3.5-5.1) mmol/L Chloride 100 (98-107) mmol/L Carbon Dioxide 27 (22-30) mmol/L Anion Gap 13 mmol/L BUN 15 (9-20) mg/dL Creatinine 0.84 (0.66-1.25) mg/dL Est GFR (CKD-EPI)AfAm >90 (>60 ml/min/1.73 sqM) Est GFR (CKD-EPI)NonAf >90 (>60 ml/min/1.73 sqM) Glucose 125 H (74-99) mg/dL Plasma Lactic Acid Artie 1.9 (0.7-2.0) mmol/L Calcium 10.3 H (8.4-10.2) mg/dL Total Bilirubin 0.9 (0.2-1.3) mg/dL AST 54 (17-59) U/L ALT 96 H (4-49) U/L Alkaline Phosphatase 122 (38-126) U/L Total Protein 8.1 (6.3-8.2) g/dL Albumin 4.9 (3.5-5.0) g/dL Lipase 1471 H (23-300) U/L Disposition Clinical Impression: Elevated lipase, Abdominal pain Disposition: HOME SELF-CARE Condition: Fair Instructions (If sedation given, give patient instructions): Pancreatitis (ED) Additional Instructions: Increase oral fluid intake. Follow-up with PCP regarding abdominal pain and elevated lipase levels. Return to ER if experiencing worsening symptoms. Is patient prescribed a controlled substance at d/c from ED?: No Referrals: Bakari Vasquez MD [Primary Care Provider] - 1-2 days Time of Disposition: 13:11
[2024-12-31] MEDS: MORPHINE SULFATE 4 MG/ML SYRINGE IVP STA (11:28)
[2024-12-31] MEDS: SODIUM CHLORIDE 0.9% 1,000 ML IV ONE (11:29)
[2024-12-31 11:37] LABS: Basophils # (A) 0.03 10*3/uL (0.00-0.10); Basophils % (A) 0.4 %; Eosinophils # (A) 0.11 10*3/uL (0.04-0.35); Eosinophils % (A) 1.5 %; HCT 43.8 % (39.6-50.0); HGB 15.9 g/dL (13.0-17.0); Lymphocytes # (A) 1.59 10*3/uL (0.90-5.00); Lymphocytes % (A) 22.1 %; MCHC 36.3 g/dL (32.0-37.0); MCV 90.9 fL (80.0-97.0); Monocytes % (A) 8.3 %; Neutrophils # (A) 4.84 10*3/uL (1.80-7.70); Neutrophils % (A) 67.3 %; Platelet Count 324 10*3/uL (140-440); RBC 4.82 10*6/uL (4.40-5.60); RDW 12.9 % (11.5-14.5)
[2024-12-31 11:47] LABS: ALT 96 U/L (4-49); AST 54 U/L (17-59); African American GFR (CKD) >90 (>60 ml/min/1.73 sqM); Albumin 4.9 g/dL (3.5-5.0); Alkaline Phosphatase 122 U/L (38-126); Anion Gap 13 mmol/L; Blood Urea Nitrogen 15 mg/dL (9-20); Calcium 10.3 mg/dL (8.4-10.2); Carbon Dioxide 27 mmol/L (22-30); Chloride 100 mmol/L (98-107); Glucose 125 mg/dL (74-99); Lipase 1471 U/L (23-300); Non-African American GFR(CKD) >90 (>60 ml/min/1.73 sqM); Potassium 4.4 mmol/L (3.5-5.1); Sodium 140 mmol/L (137-145); Total Bilirubin 0.9 mg/dL (0.2-1.3); Total Protein 8.1 g/dL (6.3-8.2)
--- NOTE | 2024-12-31 12:55 | CT ---
EXAMINATION TYPE: CT abdomen pelvis w con DATE OF EXAM: 12/31/2024 COMPARISON: NONE CLINICAL INDICATION: Male, 54 years old with history of LLQ pain, llq pain, TECHNIQUE: CT scan of the abdomen and pelvis is performed with IV Contrast, patient injected with 100 mL of Isov ue 300., (none if empty) Oral contrast used: without Oral Contrast (none if empty) CT DLP: 1986.6 mGycm, Automated exposure control for dose reduction was used. FINDINGS: LUNG BASES: Mild bibasilar linear scarring and/or atelectasis is present. LIVER/GB: Liver is diffusely low-density consistent with fatty infiltrative cellular disease. PANCREAS: No significant abnormality is seen. SPLEEN: No significant abnormality is seen. ADRENALS: No significant abnormality is seen. KIDNEYS: Subcentimeter low dense lesion right kidney is too small to further characterize but presume d benign. BOWEL: No abnormal small or large bowel dilatation. PROSTATE/SEMINAL VESICLES: Suboptimal evaluation. LYMPH NODES: No greater than 1cm abdominal or pelvic lymph nodes are appreciated. OSSEOUS STRUCTURES: Metallic artifact from bilateral hip arthroplasty causes streak artifact somewhat limiting evaluation of pelvic structures. Multilevel facet arthropathy and the lumbar spine is seen. OTHER: No significant additional abnormality is seen. IMPRESSION: No significant acute finding is seen to account for patient's clinical symptoms of left lower quadrant abdominal pain. [facility], , 12/31/2024 12:53 PM
[2024-12-31 13:55] VITALS: BP 158/73; PULSE 98; TEMP 98.2
== END 2024-12-31 13:56 | disposition home or self-care (01) ==
LOC: EC 10:26
DX: R10.32 Left lower quadrant pain (principal); R74.8 Abnormal levels of other serum enzymes
CPT/HCPCS: 80053; 83605; 83690; 85025; 74177; 99284; 96374; 96361; J2270; Q9967; 36415